=== PATIENT | female | born 1945 | race Caucasian/White ===

== ENCOUNTER → 2017-09-25 | Outpatient (CLI) | payer OTHER ==
[~2017-09-25] MED LIST: Biotin PO; CENTRUM SILVER1 EAC3 PO; CRESTOR10 MG PO; Coreg PO; DICYCLOMINE HCL10 MG PO; FUROSEMIDE20 MG PO; GABAPENTIN400 MG PO; KLOR-CON 1010 MEQ PO; LEVAQUIN500 MG PO; LEVOTHYROXINE50 MCG PO; METRONIDAZOLE500 MG PO; NIACIN500 M2 PO; PANTOPRAZOLE SO40 MG PO; VITAMIN E400 UNI1 PO; Vit D 3 PO
--- NOTE | 2017-09-25 08:49 | Diagnostic Imaging Report ---
PROCEDURE:ABDOMINAL ULTRASOUND COMPARISON:[facility], US, US ABDOMEN COMPLETE, 10/27/2014, 17:15. [facility], CT, CT ABDOMEN/PELVIS W, 09/16/2016, 18:10. INDICATION:Left Sided Abdominal Pain TECHNIQUE:Dias scale and color Doppler ultrasound FINDINGS: Imaged segments of the inferior vena cava and abdominal aorta are of normal caliber. Multifocal aortic atherosclerosis. Normal pancreatic head and proximal body. The tail is obscured by bowel gas. Right liver spans 14.5 cm. Diffusely coarsened and increased echotexture with a smooth margin. The portal vein diameter 1 cm; normal flow direction. Cholecystectomy. Common bile duct diameter 0.3 cm Right kidney: 10.4 x 5.4 x 5.5 cm. 0.8 x 0.6 x 0.7 cm non-shadowing hyperechoic focus at the inferior pole without conspicuous internal vascular flow. Left kidney: 10 x 4.4 x 4.4 cm. Spleen length is 9.7 cm. CONCLUSION: 1. Echogenic liver most commonly secondary to steatosis. 2. Stable 0.8 cm hyperechoic nodule at the right kidney consistent with an angiomyolipoma. 3. No conspicuous etiology for left abdominal pain. Dictated by: Von Pretty M.D. on 09/25/2017 at 8:48 Electronically approved by: Von Pretty M.D. on 09/25/2017 at 8:48
== END ==
LOC: US 07:11
PROVIDERS: ATTEND Family Medicine
DX: R10.9 Unspecified abdominal pain (principal)
CPT/HCPCS: 76700

== ENCOUNTER 2018-04-07 15:18 | Emergency (ER) | payer OTHER ==
[2018-04-07] MEDS ORDERED: COREG CR80 MG PO (23:38)
== END 2018-04-07 15:30 | disposition short-term general hospital (02) ==
LOC: FSED 15:18
DX: M25.473 Effusion, unspecified ankle (principal)

== ENCOUNTER 2018-04-07 15:39 | Inpatient (IN) | payer OTHER, MEDICARE ==
[~2018-04-07] VITALS: Ht 142.2 cm; Wt 83.5 kg
[2018-04-07 18:04] LABS: BASOPHILS # (AUTO) 0.1 (0.0-0.1); BASOPHILS % 0.5 % (0.0-1.0); EOSINOPHILS # (AUTO) 0.1 (0.0-0.4); EOSINOPHILS % 0.8 % (0.0-6.0); HEMATOCRIT 44.1 % (34.2-44.1); HEMOGLOBIN 14.8 g/dL (12.0-16.0); LYMPHOCYTES # (AUTO) 2.2 (1.0-3.2); LYMPHOCYTES % 16.3 % (18.0-39.1); MEAN CORPUSCULAR HEMOGLOBIN 31.8 pg (28-32); MEAN CORPUSCULAR HGB CONC 33.6 g/dL (31-35); MEAN CORPUSCULAR VOLUME 94.8 fL (81-99); MONOCYTES # (AUTO) 1.2 (0.2-0.8); MONOCYTES % 9.1 % (4.4-11.3); NEUTROPHILS # (AUTO) 9.7 (2.1-6.9); NEUTROPHILS % 72.8 % (38.7-80.0); PLATELET COUNT 413 x10e3/uL (140-360); RED BLOOD COUNT 4.65 x10e6/uL (3.6-5.1); RED CELL DISTRIBUTION WIDTH 13.6 % (11.7-14.4)
[2018-04-07 18:11] LABS: INR 1.01; PROTHROMBIN TIME 14.2 seconds (11.9-14.5)
[2018-04-07 18:12] LABS: PARTIAL THROMBOPLASTIN TIME 33.8 seconds (23.8-35.5)
[2018-04-07 18:22] LABS: ALANINE AMINOTRANSFERASE 58 IU/L (0-55); ALBUMIN 3.4 g/dL (3.5-5.0); ALBUMIN/GLOBULIN RATIO 0.7 (0.8-2.0); ALKALINE PHOSPHATASE 227 IU/L (40-150); ANION GAP 19.3 mmol/L (8-16); BLOOD UREA NITROGEN 11 mg/dL (7-26); BUN/CREATININE RATIO 14 (6-25); CALCIUM 10.3 mg/dL (8.4-10.2); CARBON DIOXIDE 27 mmol/L (22-29); CHLORIDE 98 mmol/L (98-107); CREATINE KINASE 37 IU/L (29-168); CREATININE, SERUM 0.78 mg/dL (0.57-1.11); EST GLOMERULAR FILTRATION RATE > 60 ML/MIN (60-); GLUCOSE 112 mg/dL (74-118); MAGNESIUM 2.2 MG/DL (1.3-2.1); POTASSIUM 4.3 mmol/L (3.5-5.1); SODIUM 140 mmol/L (136-145)
--- NOTE | 2018-04-07 18:58 | Diagnostic Imaging Report ---
EXAMINATION: CHEST SINGLE (PORTABLE) INDICATION: \S\ERMD ORDER \S\[id number] \S\[id number] \S\Y COMPARISON: CT chest 11/05/[address] abdomen pelvis 09/16/2016 FINDINGS: AP view TUBES and LINES: Pacemaker device overlying the left upper chest. Leads cannot be well evaluated on this exam. LUNGS: Lungs are well inflated. Bilateral pulmonary edema. No lobar consolidations. Bibasilar atelectasis. PLEURA: Likely small bilateral pleural effusions. No pneumothorax. HEART AND MEDIASTINUM: Moderate enlargement of the cardiac silhouette, unchanged. BONES AND SOFT TISSUES: No acute osseous lesion. Soft tissues are unremarkable. UPPER ABDOMEN: No free air under the diaphragm. IMPRESSION: Cardiomegaly and/or superimposed pericardial effusion with bilateral pulmonary edema. Signed by: Dr. Minoo Rivero M.D. on 04/07/2018 6:52 PM
--- NOTE | 2018-04-07 19:39 | Diagnostic Imaging Report ---
EXAM: CT CHEST W INDICATION: History of PEs, left lower chest may blood clot, swelling to the left lower extremity COMPARISON: CT of the chest November 05, 2014 TECHNIQUE: Multidetector CT scanning of the chest was performed. Coronal and sagittal multiplanar reformations were obtained. Dose modulation, iterative reconstruction, and/or weight based adjustment of the mA/kV was utilized to reduce the radiation dose to as low as reasonably achievable. PE protocol performed. IV Contrast: 100 cc Isovue-370 CTDIvol has been reviewed. It is below the limits set by the Radiation Protocol Committee (RPC). FINDINGS: LUNGS AND AIRWAYS: The trachea and major bronchi are unremarkable. No consolidations or edema. Moderate emphysematous changes predominantly involving the upper lungs. Bibasilar subsegmental scarring and mild traction bronchiectasis. PLEURA: No effusions or pneumothorax. HEART, MEDIASTINUM, VESSELS: The heart is at the upper limits of normal in size. Small pericardial effusion. Atherosclerotic changes of the thoracic aorta without focal aneurysm. No evidence of a pulmonary embolism to the segmental level. No mediastinal mass or lymphadenopathy. UPPER ABDOMEN: No acute findings MUSCULOSKELETAL: No acute findings. Left approach dual lead cardiac device. IMPRESSION: 1. No evidence of a pulmonary embolism. 2. Moderate emphysematous changes without focal consolidation. Signed by: Dr. Jessica Jones M.D. on 04/07/2018 7:33 PM
[2018-04-07] MEDS: ENOXAPARIN SODIUM INJ 100 MG/ML SYR SC SCH (21:00)
[2018-04-07] MEDS ORDERED: MORPHINE SULFATE 2 MG/ML SYR IV PRN (21:00)
[2018-04-07 23:12] VITALS: BP 111/49
[2018-04-07] MEDS ORDERED: SODIUM CHLORIDE 0.9% 50ML 50 ML ONE (23:12)
[2018-04-07] MEDS ORDERED: IOPAMIDOL 370 MG/ML 200 ML INFUS..BTL INJ ONE (23:12)
[2018-04-07 23:18] VITALS: BP 111/49
[2018-04-07] MEDS ORDERED: COREG CR80 MG PO (23:38)
[2018-04-08] VITALS (7 sets, daily range): BP systolic 96–140; BP diastolic 50–70
[2018-04-08 02:37] LABS: CREATINE KINASE 32 IU/L (29-168)
[2018-04-08] MEDS: ONDANSETRON HCL INJ 2 MG/ML VIAL IV PRN ×2 (03:08→08:55)
[2018-04-08 05:38] LABS: BASOPHILS # (AUTO) 0.1 (0.0-0.1); BASOPHILS % 0.6 % (0.0-1.0); EOSINOPHILS # (AUTO) 0.1 (0.0-0.4); HEMATOCRIT 40.6 % (34.2-44.1); HEMOGLOBIN 13.4 g/dL (12.0-16.0); LYMPHOCYTES % 17.1 % (18.0-39.1); MEAN CORPUSCULAR HEMOGLOBIN 31.6 pg (28-32); MEAN CORPUSCULAR VOLUME 95.8 fL (81-99); MONOCYTES # (AUTO) 1.2 (0.2-0.8); MONOCYTES % 10.1 % (4.4-11.3); NEUTROPHILS # (AUTO) 8.1 (2.1-6.9); NEUTROPHILS % 70.8 % (38.7-80.0); PLATELET COUNT 405 x10e3/uL (140-360); RED BLOOD COUNT 4.24 x10e6/uL (3.6-5.1); RED CELL DISTRIBUTION WIDTH 13.7 % (11.7-14.4)
[2018-04-08 08:36] LABS: CREATINE KINASE 31 IU/L (29-168)
[2018-04-08] MEDS: ENOXAPARIN SODIUM INJ 100 MG/ML SYR SC SCH (08:38)
[2018-04-08 14:12] LABS: CREATINE KINASE 33 IU/L (29-168)
--- NOTE | 2018-04-08 15:22 | Consultation ---
DATE OF CONSULTATION: April 08, 2018 CARDIOLOGY CONSULTATION REQUESTING PHYSICIAN: Dr. Naomy Willson REASON FOR CONSULTATION: Left lower extremity DVT. HISTORY OF PRESENT ILLNESS: This is a 72-year-old woman with a history of diabetes mellitus, hypertension, hyperlipidemia, history of DVT/PE previously on Coumadin therapy, St. Matthew permanent pacemaker, breast cancer status post right partial mastectomy, and rheumatoid arthritis, who presents with left lower extremity pain and swelling. The patient denies any recent travel or surgery. She noted swelling of her left lower extremity starting on Sunday. Her cardiac care is with Dr. Harmon. On speaking to his nurse about her left lower extremity swelling, she was instructed to present to the ER. Left lower extremity venous Doppler revealed extensive thrombus from the left common femoral vein, deep femoral vein, superficial femoral vein, popliteal vein and posterior tibial vein. The distal great saphenous vein remained patent. Cardiology was consulted for recommendations. The patient denies any chest pain, palpitations, orthopnea or PND. She does endorse chronic shortness of breath. REVIEW OF SYSTEMS: Negative, except as per HPI. PAST MEDICAL HISTORY 1. Diabetes mellitus. 2. Hypertension. 3. Hyperlipidemia. 4. History of PE/DVT previously on Coumadin therapy. 5. Status post St. Matthew permanent pacemaker. 6. Reported history of congestive heart failure. 7. Right breast cancer, status post partial mastectomy with chemotherapy and radiation. 8. Rheumatoid arthritis. 9. Hypothyroidism. PAST SURGICAL HISTORY 1. Partial mastectomy. 2. Cholecystectomy. 3. Exploratory laparotomy with colonic resection. 4. Tubal ligation. ALLERGIES: PLEASE SEE EMR. MEDICATIONS: Please see medication list. SOCIAL HISTORY: Denies tobacco, alcohol, or illicit drugs. FAMILY HISTORY: Noncontributory to current illness. PHYSICAL EXAMINATION VITAL SIGNS: Temperature 96.7 degrees, pulse 72, respiratory rate 20, blood pressure 113/55, oxygen saturation 94% on 3 L nasal cannula. GENERAL: Obese woman in no acute distress, well developed, well nourished. HEENT: Normocephalic and atraumatic. Pupils are equal. No scleral icterus. NECK: Supple. No thyromegaly or cervical lymphadenopathy. No carotid bruits. LUNGS: Clear to auscultation bilaterally. No wheezes or crackles. CARDIOVASCULAR: Normal rate, regular rhythm. No murmur. Normal S1, S2. ABDOMEN: Soft. Nontender. EXTREMITIES: Marked swelling of the left lower extremity. NEURO: Nonfocal exam. LABS: WBC 11.43, hemoglobin 13.4, hematocrit 40.6, platelets 405. Troponin less than 0.001. EKG: Sinus rhythm with occasional PVCs. Left axis deviation. Low-voltage QRS. CTA OF CHEST: No evidence of pulmonary embolism. Moderate emphysematous changes without focal consolidation. IMPRESSION 1. Left lower extremity deep venous thrombosis. 2. History of pulmonary embolism/deep venous thrombosis. 3. St. Matthew permanent pacemaker. 4. Reported history of congestive heart failure. 5. Diabetes mellitus. 6. Hypertension. 7. Hyperlipidemia. 8. Rheumatoid arthritis. 9. Hypothyroidism. 10. History of breast cancer, status post partial mastectomy with chemotherapy and radiation. RECOMMENDATIONS: Continue enoxaparin for anticoagulation. Given extent of thrombus, make patient after n.p.o. after midnight, and we will attempt to perform catheter thrombolysis of the left lower extremity. Continue home cardiac medications otherwise. We will obtain an echocardiogram. Thank you for this consult. We will continue to follow. Job#: [id number]
[2018-04-08] MEDS ORDERED: NON-FORMULARY MEDICATION (Potassium Chloride (Klor-Con 10) 10 MEQ) PO SCH (19:00)
[2018-04-08] MEDS: POTASSIUM CHLORIDE 10 MEQ TABCR PO SCH (20:12)
[2018-04-08] MEDS: SIMVASTATIN 20 MG TAB PO SCH (20:12)
[2018-04-08] MEDS: ENOXAPARIN INJ 80 MG/0.8 ML SYR SC SCH (20:12)
[2018-04-08] MEDS: GABAPENTIN 400 MG CAP PO SCH (20:12)
[2018-04-09] VITALS (27 sets, daily range): BP systolic 73–139; BP diastolic 33–118
[2018-04-09] MEDS: LEVOTHYROXINE SODIUM 50 MCG TAB PO SCH (05:50)
[2018-04-09] MEDS: ENOXAPARIN INJ 80 MG/0.8 ML SYR SC SCH ×2 (08:30→20:17)
[2018-04-09] MEDS ORDERED: NON-FORMULARY MEDICATION (Carvedilol Phosphate (Coreg Cr) 80 MG) PO SCH (09:00)
[2018-04-09] MEDS: CARVEDILOL 40 MG CAPCR PO SCH (09:00)
[2018-04-09] MEDS ORDERED: SIMVASTATIN 40 MG TAB PO SCH (09:00)
[2018-04-09] MEDS ORDERED: LEVOTHYROXINE SODIUM 50 MCG TAB PO SCH (09:00)
[2018-04-09] MEDS: NIACIN 500 MG TABSR PO SCH (09:45)
[2018-04-09] MEDS: FUROSEMIDE 20 MG TAB PO SCH (09:45)
[2018-04-09] MEDS ORDERED: SODIUM CHLORIDE 0.9% 1000ML 1,000 ML ONE (11:57)
[2018-04-09] MEDS ORDERED: IOPAMIDOL 300MG/ML 100 ML INFUS..BTL IV ONE (11:57)
[2018-04-09] MEDS ORDERED: LIDOCAINE HCL 2% LOCAL 20 ML VIAL ONE (11:57)
[2018-04-09] MEDS ORDERED: HEPARIN SOD/SOD CHLORIDE 2,000 ML ONE (11:57)
[2018-04-09] MEDS ORDERED: FENTANYL CITRATE/PF 100MCG/2 ML INJ ONE (13:04)
[2018-04-09] MEDS ORDERED: HEPARIN SOD (PORCINE) 1000 UNIT/ML 30ML ONE (13:04)
[2018-04-09] MEDS ORDERED: MIDAZOLAM HCL 2 MG/2 ML VIAL ONE (13:04)
[2018-04-09] MEDS ORDERED: NITROGLYCERIN/D5W 200 MCG/ML 0 ML ONE (13:04)
[2018-04-09] MEDS ORDERED: ALTEPLASE 50 MG/VIAL (29 MILLION IU) IV ONE (13:53)
[2018-04-09] MEDS ORDERED: ALTEPLASE RECOMBINANT 2 MG/2 ML VIAL ONE (13:53)
[2018-04-09] MEDS ORDERED: SODIUM CHLORIDE 0.9% 500ML 500 ML ONE (13:54)
[2018-04-09] MEDS ORDERED: HEPARIN 25,000U/0.45% NS 250ML 250 ML ONE (14:38)
[2018-04-09] MEDS ORDERED: HEPARIN SOD (PORCINE) 5,000 UNIT/ML VIAL ONE (14:45)
[2018-04-09] MEDS ORDERED: HEPARIN SOD (PORCINE) 1000 UNIT/ML SDV IV ONE (15:00)
[2018-04-09] MEDS: HEPARIN 25,000 UNIT/D5W 250ML 250 ML IV SCH ×2 (15:03→21:58)
[2018-04-09] MEDS: MORPHINE SULFATE INJ 4 MG/ML INJ IV PRN ×2 (15:52→21:44)
[2018-04-09] MEDS: ONDANSETRON HCL INJ 2 MG/ML VIAL IV PRN ×2 (17:04→21:35)
--- NOTE | 2018-04-09 18:32 | Progress Note ---
DATE: April 09, 2018 CARDIOLOGY PROGRESS NOTE SUBJECTIVE: Had catheter placement in her lower extremity veins today with infusion of tPA ongoing. Doing well post procedure, no complaints. OBJECTIVE VITAL SIGNS: Temperature 98.9, pulse 72, respiratory rate 16, blood pressure 121/64, satting 95% on 2 liters nasal cannula. GENERAL: Awake, alert, oriented, obese white female. CARDIOVASCULAR: Regular rate and rhythm. No murmurs, rubs or gallops. Palpable carotid pulses. Palpable radial pulses. Left lower extremity is extremely swollen with 3+ edema and tenderness. Catheter in place. No significant bleeding. RESPIRATORY: Anterior exam clear to auscultation. ABDOMEN: Obese, soft, nontender, nondistended. No masses. NEURO AND PSYCH: Alert and oriented to person, place and time. Normal affect. INPATIENT MEDICATIONS: Reviewed. LABORATORY DATA: Reviewed. IMAGING DATA: Reviewed. TELEMETRY DATA: Reviewed. Normal sinus rhythm. ASSESSMENT 1. Left lower extremity deep venous thrombosis. 2. History of pulmonary embolism and deep venous thrombosis. 3. St. Matthew permanent pacemaker. 4. Reported history of congestive heart failure. 5. Diabetes. 6. Hypertension. 7. Hyperlipidemia. 8. Rheumatoid arthritis. 9. Hypothyroidism. 10. History of breast cancer status post partial mastectomy and chemotherapy and radiation. RECOMMENDATIONS: Continue intravenous tPA and heparin. Plan is to perform further thrombectomy tomorrow to see if we can get the deep veins patent to avoid long-term complications from this extensive deep venous thrombosis. Keep patient n.p.o. after midnight. Continue cardiac medications otherwise. Thank you for this consult. Will continue to follow. Job#: [id number] EV
[2018-04-09] MEDS: GABAPENTIN 400 MG CAP PO SCH (21:31)
[2018-04-09] MEDS: SIMVASTATIN 20 MG TAB PO SCH (21:31)
[2018-04-10] VITALS (38 sets, daily range): BP systolic 99–145; BP diastolic 49–101
[2018-04-10] MEDS ORDERED: PROMETHAZINE 25MG/ NS 50ML (IV) IV PRN (00:15)
[2018-04-10] MEDS: HEPARIN 25,000 UNIT/D5W 250ML 250 ML IV SCH (03:05)
[2018-04-10] MEDS: MORPHINE SULFATE INJ 4 MG/ML INJ IV PRN (03:43)
[2018-04-10 04:46] LABS: BASOPHILS # (AUTO) 0.1 (0.0-0.1); BASOPHILS % 0.6 % (0.0-1.0); EOSINOPHILS # (AUTO) 0.1 (0.0-0.4); EOSINOPHILS % 0.9 % (0.0-6.0); HEMATOCRIT 41.7 % (34.2-44.1); HEMOGLOBIN 13.3 g/dL (12.0-16.0); LYMPHOCYTES # (AUTO) 1.3 (1.0-3.2); LYMPHOCYTES % 12.6 % (18.0-39.1); MEAN CORPUSCULAR HEMOGLOBIN 31.1 pg (28-32); MEAN CORPUSCULAR HGB CONC 31.9 g/dL (31-35); MEAN CORPUSCULAR VOLUME 97.7 fL (81-99); MONOCYTES # (AUTO) 1.1 (0.2-0.8); MONOCYTES % 11.1 % (4.4-11.3); NEUTROPHILS # (AUTO) 7.6 (2.1-6.9); NEUTROPHILS % 74.4 % (38.7-80.0); PLATELET COUNT 384 x10e3/uL (140-360); RED BLOOD COUNT 4.27 x10e6/uL (3.6-5.1); RED CELL DISTRIBUTION WIDTH 13.2 % (11.7-14.4)
[2018-04-10 05:04] LABS: ANION GAP 16.4 mmol/L (8-16); BLOOD UREA NITROGEN 16 mg/dL (7-26); BUN/CREATININE RATIO 23 (6-25); CALCIUM 9.6 mg/dL (8.4-10.2); CARBON DIOXIDE 28 mmol/L (22-29); CHLORIDE 101 mmol/L (98-107); CREATININE, SERUM 0.69 mg/dL (0.57-1.11); EST GLOMERULAR FILTRATION RATE > 60 ML/MIN (60-); GLUCOSE 126 mg/dL (74-118); POTASSIUM 4.4 mmol/L (3.5-5.1); SODIUM 141 mmol/L (136-145)
[2018-04-10] MEDS: LEVOTHYROXINE SODIUM 50 MCG TAB PO SCH (05:41)
[2018-04-10] MEDS: ENOXAPARIN INJ 80 MG/0.8 ML SYR SC SCH (08:42)
[2018-04-10] MEDS: ONDANSETRON HCL INJ 2 MG/ML VIAL IV PRN (08:43)
[2018-04-10] MEDS: CARVEDILOL 40 MG CAPCR PO SCH (09:00)
[2018-04-10] MEDS: NIACIN 500 MG TABSR PO SCH (09:00)
[2018-04-10] MEDS: FUROSEMIDE 20 MG TAB PO SCH (09:00)
--- NOTE | 2018-04-10 10:15 | Progress Note ---
DATE: April 10, 2018 CARDIOLOGY PROGRESS NOTE SUBJECTIVE: The patient denies chest pain. She states her breathing is so-so. The patient underwent catheter placement in her left lower extremity yesterday for catheter thrombolysis. Plan to return to the [facility] later today for re-evaluation. OBJECTIVE VITALS: Temperature 97.9 degrees, pulse 79, respiratory rate 13, blood pressure 142/69, oxygen saturation 92% on 5 L nasal cannula. GENERAL: Obese woman in no acute distress. Awake and alert. LUNGS: Clear to auscultation anteriorly. No wheezes or crackles. CARDIOVASCULAR: Normal rate. Regular rhythm. No murmur. Normal S1 and S2. ABDOMEN: Soft and nontender. EXTREMITIES: Significant swelling of the left lower extremity with catheter in place. No significant bleeding is present. CARDIAC MEDICATIONS 1. Heparin drip. 2. Simvastatin 20 mg p.o. at bedtime. 3. Furosemide 20 mg p.o. daily. 4. Carvedilol 80 mg p.o. daily. LABS: WBC 10.24, hemoglobin 13.3, hematocrit 41.7, and platelets 384,000. Sodium 141, potassium 4.4, chloride 101, CO2 28, BUN 16, creatinine 0.69. Telemetry is normal sinus rhythm. IMPRESSION 1. Left lower extremity deep venous thrombosis. 2. History of pulmonary embolism and deep venous thrombosis. 3. St. Matthew permanent pacemaker. 4. History of congestive heart failure. 5. Moderate to severe aortic regurgitation. 6. Diabetes mellitus. 7. Hypertension. 8. Hyperlipidemia. 9. Rheumatoid arthritis. 10. Hypothyroidism. 11. History of breast cancer, status post partial mastectomy with chemotherapy and radiation. RECOMMENDATIONS: Continue intravenous tPA and heparin. The patient will return to the [facility] later today for re-evaluation and possible thrombectomy. Discontinue enoxaparin until heparin has been stopped. She will need initiation on oral anticoagulation post procedure. Continue current cardiac medications otherwise. Thank you for this consult. We will continue to follow. Job#: [id number] ANTONY
[2018-04-10] MEDS ORDERED: IOPAMIDOL 300MG/ML 100 ML INFUS..BTL IV ONE (12:44)
[2018-04-10] MEDS ORDERED: HEPARIN SOD/SOD CHLORIDE 1,000 ML ONE (12:44)
[2018-04-10] MEDS ORDERED: SODIUM CHLORIDE 0.9% 1000ML 1,000 ML ONE (12:44)
[2018-04-10] MEDS ORDERED: MIDAZOLAM HCL 2 MG/2 ML VIAL ONE (13:01)
[2018-04-10] MEDS ORDERED: FENTANYL CITRATE/PF 100MCG/2 ML INJ ONE (13:02)
[2018-04-10] MEDS ORDERED: LIDOCAINE HCL 2% LOCAL 20 ML VIAL ONE (13:12)
[2018-04-10] MEDS ORDERED: RIVAROXABAN 15 MG TABLET PO STA (15:02)
[2018-04-10] MEDS: RIVAROXABAN 15 MG TABLET PO SCH ×2 (15:52→17:54)
[2018-04-10 18:50] LABS: CLARITY,URINE CLOUDY (CLEAR); COLOR,URINE YELLOW (YELLOW); LEUKOCYTE ESTERASE ,URINE NEGATIVE (NEGATIVE); NITRITE,URINE POSITIVE (NEGATIVE); PROTEIN,URINE DIPSTICK 2+ (NEGATIVE); URINE UROBILINOGEN 0.2 mg/dL (0.2 - 1)
[2018-04-10 18:51] LABS: BILIRUBIN,URINE NEGATIVE (NEGATIVE); KETONES,URINE TRACE (NEGATIVE)
[2018-04-10 18:55] LABS: BACTERIA,URINE MANY /HPF; RBC,URINE 21-50 /HPF (0-5); WBC,URINE (MAN) 21-50 /HPF (0-5)
[2018-04-10] MEDS: POTASSIUM CHLORIDE 10 MEQ TABCR PO SCH (19:33)
--- NOTE | 2018-04-10 20:21 | Operative Report ---
DATE OF PROCEDURE: April 10, 2018 INDICATIONS: DVT. PROCEDURES PERFORMED: 1. Unilateral extremity venogram with first-order catheter placement in the left femoral vein. 2. Primary thrombectomy of the left common femoral vein. 3. Removal of lysis catheter. COMPLICATIONS: None. RECOMMENDATIONS: Staged left iliac vein intravascular ultrasound and stent placement in 6 to 8 weeks. Existing sheath was used to perform venogram of the left femoral vein. There was partial reperfusion. In the left iliofemoral DVT, large amounts of thrombus burden remained. A primary thrombectomy was performed with church of reasonable outflow into the inferior vena cava. The sheath was secured and removed under manual pressure. Patient was initially on anticoagulation and discharged home. Job#: [id number] EV
--- NOTE | 2018-04-10 20:27 | Operative Report ---
DATE OF PROCEDURE: INDICATIONS: Acute left iliofemoral DVT. PROCEDURES PERFORMED: 1. Ultrasound-guided access into the small saphenous vein on the left side. 1. Primary thrombectomy of the left common femoral and iliac veins. 2. Initiation of transcatheter lysis. COMPLICATIONS: None. RECOMMENDATIONS: Transcatheter lysis for the next 24 hours with reassessment of reperfusion. BLOOD LOSS: 10 mL. Access obtained in the left small saphenous vein using ultrasound guidance. A 6-Cambodian sheath was placed. Complete occlusion of the femoral, common femoral and iliac veins was noted. The lesions were crossed using a Glidewire, and a 20 cm perfusion catheter was deployed and secured in place. Patient was initiated on intravenous heparin and tPA and transferred to the ICU in stable condition. Job#: [id number] KAREN
[2018-04-10] MEDS: SIMVASTATIN 20 MG TAB PO SCH (21:52)
[2018-04-10] MEDS: GABAPENTIN 400 MG CAP PO SCH (21:52)
[2018-04-11] MEDS: ONDANSETRON HCL INJ 2 MG/ML VIAL IV PRN (00:50)
[2018-04-11] MEDS: MORPHINE SULFATE INJ 4 MG/ML INJ IV PRN (00:50)
[2018-04-11 04:32] VITALS: BP 137/63
[2018-04-11] MEDS: LEVOTHYROXINE SODIUM 50 MCG TAB PO SCH (06:32)
[2018-04-11 07:15] VITALS: BP 134/66
[2018-04-11] MEDS: RIVAROXABAN 15 MG TABLET PO SCH ×2 (08:58→16:03)
[2018-04-11] MEDS: FUROSEMIDE 20 MG TAB PO SCH (08:59)
[2018-04-11] MEDS: CARVEDILOL 40 MG CAPCR PO SCH (08:59)
[2018-04-11] MEDS: NIACIN 500 MG TABSR PO SCH (08:59)
--- NOTE | 2018-04-11 10:28 | Progress Note ---
DATE: April 11, 2018 CARDIOLOGY PROGRESS NOTE SUBJECTIVE: The patient denies chest pain or shortness of breath. Her legs feel slightly better. OBJECTIVE VITALS: Temperature 96.6 degrees, pulse 70, respiratory rate 20, blood pressure 134/66, oxygen saturation 93% on 4 L nasal cannula. GENERAL: Obese woman in no acute distress. Awake and alert. LUNGS: Clear to auscultation bilaterally. No wheezes or crackles. CARDIOVASCULAR: Normal rate. Regular rhythm. No murmur. Normal S1 and S2. ABDOMEN: Soft and nontender. EXTREMITIES: Left lower extremity remains swollen. CARDIAC MEDICATIONS 1. Carvedilol 80 mg p.o. daily. 2. Furosemide 20 mg p.o. daily. 3. Rivaroxaban 15 mg p.o. b.i.d. 4. Levothyroxine 100 mcg p.o. daily. 5. Simvastatin 20 mg p.o. at bedtime. LABS: None today. IMPRESSION 1. Left lower extremity deep venous thrombosis. 2. History of pulmonary embolism/deep venous thrombosis. 3. St. Matthew permanent pacemaker. 4. History of congestive heart failure. 5. Moderate to severe aortic regurgitation. 6. Diabetes mellitus. 7. Hypertension. 8. Hyperlipidemia. 9. Rheumatoid arthritis. 10. Hypothyroidism. 11. History of breast cancer, status post partial mastectomy with chemotherapy and radiation. RECOMMENDATIONS: Patient underwent left lower extremity venogram with catheter placement into the left femoral vein and primary thrombectomy of the left common femoral vein as well as removal of the lysis catheter. The patient will need staged left iliac vein intravascular ultrasound and stent placement in 6 to 8 weeks. Start Xarelto 15 mg p.o. b.i.d. and compression of the left lower extremity. Continue current cardiac medications otherwise. Thank you for this consult. We will continue to follow. Job#: [id number]
[2018-04-11 11:39] VITALS: BP 117/56
[2018-04-11] MEDS: HEPARIN 25,000 UNIT/D5W 250ML 250 ML IV SCH (14:00)
[2018-04-11 16:00] VITALS: BP 129/60
== END 2018-04-11 16:11 | disposition home or self-care (01) | DRG 271 ==
LOC: ER 15:39 → INTOOBSV 20:58 → ERHOLD 20:58 → MED/SURG 22:08 → ICU 04-09 14:53 → OBSVTOIN 04-10 12:56 → MED/SURG 04-10 20:49
PROC: 3E03317 Introduction of Other Thrombolytic into Peripheral Vein, Percutaneous Approach (ICD-10-PCS; 2018-04-09)
PROC: B51C1ZZ Fluoroscopy of Left Lower Extremity Veins using Low Osmolar Contrast (ICD-10-PCS; 2018-04-09)
PROC: 04CL3ZZ Extirpation of Matter from Left Femoral Artery, Percutaneous Approach (ICD-10-PCS; principal; 2018-04-10)
PROC: 04CD3ZZ Extirpation of Matter from Left Common Iliac Artery, Percutaneous Approach (ICD-10-PCS; 2018-04-10)
DX: I82.422 Acute embolism and thrombosis of left iliac vein (principal); Z68.41 Body mass index [BMI] 40.0-44.9, adult; I82.432 Acute embolism and thrombosis of left popliteal vein; I82.442 Acute embolism and thrombosis of left tibial vein; E66.01 Morbid (severe) obesity due to excess calories; E11.9 Type 2 diabetes mellitus without complications; I11.0 Hypertensive heart disease with heart failure; I50.9 Heart failure, unspecified; I25.10 Atherosclerotic heart disease of native coronary artery without angina pectoris; E03.9 Hypothyroidism, unspecified; M06.9 Rheumatoid arthritis, unspecified; I35.1 Nonrheumatic aortic (valve) insufficiency; G47.00 Insomnia, unspecified; Z86.711 Personal history of pulmonary embolism; Z86.718 Personal history of other venous thrombosis and embolism; Z79.01 Long term (current) use of anticoagulants; Z95.0 Presence of cardiac pacemaker; Z85.3 Personal history of malignant neoplasm of breast; Z92.21 Personal history of antineoplastic chemotherapy; Z92.3 Personal history of irradiation; Z88.5 Allergy status to narcotic agent; Z88.2 Allergy status to sulfonamides; Z88.8 Allergy status to other drugs, medicaments and biological substances
CPT/HCPCS: 36010; 36415; 37187; 37212; 71045; 71260; 75820; 75825; 80048; 80053; 81001; 82550; 82553; 82948; 83605; 83735; 83880; 84484; 85025; 85610; 85730; 87040; 87071; 87186; 87205; 93005; 93306; 93970; 99284; C1769; G0378; J1644; J1650; J2001; J2250; J2270; J2405; J2997; J7030; J7040; Q9967

== ENCOUNTER → 2018-04-25 | Day surgery (SDC) | payer OTHER ==
[~2018-04-25] VITALS: Ht 144.8 cm; Wt 82.6 kg
[2018-04-25] VITALS (9 sets, daily range): BP systolic 117–133; BP diastolic 56–72
[~2018-04-25] MED LIST changes: +BENZOCAINE 20% SPR 60 ML CAN ONE; +COREG CR80 MG PO; +LIDOCAINE HCL 2% LOCAL INJ 5 ML SDV VIAL INJ ONE; +LOSARTAN POTASS25 MG PO; +PROPOFOL IV EMULSION 10 MG/ML 20 ML VIAL ONE; +SODIUM CHLORIDE 0.9% 1000ML 1,000 ML ONE; +XARELTO10 MG PO
[2018-04-25 09:18] LABS: BASOPHILS # (AUTO) 0.1 (0.0-0.1); BASOPHILS % 0.8 % (0.0-1.0); EOSINOPHILS # (AUTO) 0.3 (0.0-0.4); HEMATOCRIT 43.1 % (34.2-44.1); HEMOGLOBIN 13.9 g/dL (12.0-16.0); LYMPHOCYTES % 26.4 % (18.0-39.1); MEAN CORPUSCULAR HEMOGLOBIN 31.4 pg (28-32); MEAN CORPUSCULAR HGB CONC 32.3 g/dL (31-35); MEAN CORPUSCULAR VOLUME 97.5 fL (81-99); MONOCYTES # (AUTO) 0.7 (0.2-0.8); MONOCYTES % 8.9 % (4.4-11.3); NEUTROPHILS # (AUTO) 4.5 (2.1-6.9); NEUTROPHILS % 59.5 % (38.7-80.0); PLATELET COUNT 336 x10e3/uL (140-360); RED BLOOD COUNT 4.42 x10e6/uL (3.6-5.1); RED CELL DISTRIBUTION WIDTH 14.4 % (11.7-14.4)
[2018-04-25 09:31] LABS: INR 1.41; PROTHROMBIN TIME 18.4 seconds (11.9-14.5)
[2018-04-25 09:34] LABS: ALANINE AMINOTRANSFERASE 16 IU/L (0-55); ALBUMIN 3.3 g/dL (3.5-5.0); ALBUMIN/GLOBULIN RATIO 0.8 (0.8-2.0); ALKALINE PHOSPHATASE 97 IU/L (40-150); ANION GAP 14.1 mmol/L (8-16); BLOOD UREA NITROGEN 14 mg/dL (7-26); BUN/CREATININE RATIO 18 (6-25); CALCIUM 9.9 mg/dL (8.4-10.2); CARBON DIOXIDE 30 mmol/L (22-29); CHLORIDE 101 mmol/L (98-107); CREATININE, SERUM 0.79 mg/dL (0.57-1.11); EST GLOMERULAR FILTRATION RATE > 60 ML/MIN (60-); GLUCOSE 113 mg/dL (74-118); POTASSIUM 4.1 mmol/L (3.5-5.1); SODIUM 141 mmol/L (136-145)
== END | disposition home or self-care (01) ==
LOC: CATH LAB 08:21
PROVIDERS: ATTEND Internal Medicine
DX: I35.0 Nonrheumatic aortic (valve) stenosis (principal); I82.402 Acute embolism and thrombosis of unspecified deep veins of left lower extremity; I70.0 Atherosclerosis of aorta; J44.9 Chronic obstructive pulmonary disease, unspecified; I10 Essential (primary) hypertension; E78.5 Hyperlipidemia, unspecified; G47.33 Obstructive sleep apnea (adult) (pediatric); E03.9 Hypothyroidism, unspecified; Z88.6 Allergy status to analgesic agent; Z91.041 Radiographic dye allergy status; Z88.2 Allergy status to sulfonamides; Z88.8 Allergy status to other drugs, medicaments and biological substances; Z91.018 Allergy to other foods; Z79.02 Long term (current) use of antithrombotics/antiplatelets; Z95.0 Presence of cardiac pacemaker; Z87.891 Personal history of nicotine dependence; Z68.38 Body mass index [BMI] 38.0-38.9, adult
CPT/HCPCS: 36415; 80053; 85025; 85610; 93312; 93320; 93325; J2001; J7030

== ENCOUNTER → 2018-08-08 | Day surgery (SDC) | payer OTHER ==
[2018-08-07 11:16] LABS: BASOPHILS % 0.3 % (0.0-1.0); EOSINOPHILS # (AUTO) 0.2 (0.0-0.4); EOSINOPHILS % 2.6 % (0.0-6.0); HEMATOCRIT 44.4 % (34.2-44.1); HEMOGLOBIN 14.5 g/dL (12.0-16.0); LYMPHOCYTES # (AUTO) 2.1 (1.0-3.2); LYMPHOCYTES % 31.3 % (18.0-39.1); MEAN CORPUSCULAR HEMOGLOBIN 31.3 pg (28-32); MEAN CORPUSCULAR HGB CONC 32.7 g/dL (31-35); MEAN CORPUSCULAR VOLUME 95.7 fL (81-99); MONOCYTES # (AUTO) 0.8 (0.2-0.8); MONOCYTES % 11.1 % (4.4-11.3); NEUTROPHILS # (AUTO) 3.7 (2.1-6.9); NEUTROPHILS % 54.4 % (38.7-80.0); PLATELET COUNT 234 x10e3/uL (140-360); RED BLOOD COUNT 4.64 x10e6/uL (3.6-5.1); RED CELL DISTRIBUTION WIDTH 13.7 % (11.7-14.4)
[2018-08-07 11:39] LABS: INR 0.86; PROTHROMBIN TIME 12.5 seconds (11.9-14.5)
[2018-08-07 11:44] LABS: ALANINE AMINOTRANSFERASE 12 IU/L (0-55); ALBUMIN 3.6 g/dL (3.5-5.0); ALBUMIN/GLOBULIN RATIO 1.3 (0.8-2.0); ALKALINE PHOSPHATASE 74 IU/L (40-150); BLOOD UREA NITROGEN 14 mg/dL (7-26); BUN/CREATININE RATIO 18 (6-25); CARBON DIOXIDE 28 mmol/L (22-29); CHLORIDE 101 mmol/L (98-107); CREATININE, SERUM 0.79 mg/dL (0.57-1.11); EST GLOMERULAR FILTRATION RATE > 60 ML/MIN (60-); GLUCOSE 95 mg/dL (74-118); SODIUM 138 mmol/L (136-145)
[2018-08-08] VITALS (10 sets, daily range): BP systolic 105–144; BP diastolic 66–88
[~2018-08-08] VITALS: Ht 142.2 cm; Wt 90.7 kg
[~2018-08-08] MED LIST changes: -BENZOCAINE 20% SPR 60 ML CAN ONE; +DIPHENHYDRAMINE HCL 25 MG CAP ONE; +DIPHENHYDRAMINE HCL INJ 50 MG/ML VIAL ONE; +FAMOTIDINE 20 MG/2 ML VIAL IV ONE; +FENTANYL CITRATE/PF 100MCG/2 ML INJ ONE; +FUROSEMIDE INJ 10 MG/ML 4 ML VIAL ONE; +HEPARIN SOD (PORCINE) 1000 UNIT/ML 30ML ONE; +HEPARIN SOD/SOD CHLORIDE 2,000 ML ONE; +IOPAMIDOL 370 MG/ML 200 ML INFUS..BTL INJ ONE; +LIDOCAINE HCL 1% LOCAL INJ 20 ML VIAL ONE; -LIDOCAINE HCL 2% LOCAL INJ 5 ML SDV VIAL INJ ONE; +METHYLPREDNISOLONE SOD SUCC 125 MG/2ML VIAL ONE; +MIDAZOLAM HCL 2 MG/2 ML VIAL ONE; +NITROGLYCERIN/D5W 200 MCG/ML 250 ML ONE; -PROPOFOL IV EMULSION 10 MG/ML 20 ML VIAL ONE; +VERAPAMIL HCL 2.5 MG/ML 2 ML VIAL ONE
--- NOTE | 2018-08-08 10:15 | NUR ---
1015am received pt in Rec room #9 Identifierx2. Received report from Reed ESCALONA.[facility] Dr Oliveira. Rt TR Band approach Rt Tr band site w/o oozing or hematoma 13cc in bladder TR band Titration scheduled at 1045. Back to baseline orientation Resp regular sats 88% w/o O2 3Ln/c.Pt on home O2.Abdomen soft and nontender denies necessity to defecate or urinate. Josafat Discussed Dc instructions and f/o care. Has copies of POC. Pt eating ,tolerating food and assisted to bathroom . Bilateral PPx4 present. Iv 0.9NS at 50cc HR to left iv site w/o s/s infiltration
--- NOTE | 2018-08-08 10:45 | NUR ---
TR Band titration started 13cc in balloon Rt Radial pulse adequate no s/s bleeding,device intact.
--- NOTE | 2018-08-08 12:00 | NUR ---
1200 stable vs and TR band site 100% titration successful Stable site. coban and tegaderm and 2x2 gauze and splint in place. Dc paper given to family and dressed and assisted to car per [facility] staff Jesus [employer] REPAIR[employer] Iv removed site w/o infiltration. coban dressing in place. 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 To car per w/c aware of importance to followup care at [facility] will call for appt. No co has no concerns or questions
--- NOTE | 2018-08-08 15:20 | Operative Report ---
DATE OF PROCEDURE: August 08, 2018 PROCEDURES TITLE 1. Left heart catheterization. 2. Selective coronary angiography times 2. INDICATIONS: Abnormal nuclear stress test. CONSENT: Informed consent was obtained and documented in the chart. PROCEDURE IN DETAIL: The patient was brought to the cardiac catheterization laboratory in a fasting state after written informed consent was obtained. Bilateral groins and right wrist were prepped and draped in the usual sterile fashion. Next, 1% lidocaine was infiltrated over the right radial artery to achieve local anesthesia. The right radial artery was accessed with a micropuncture needle. A 5-Scottish sheath was placed via modified Seldinger technique. A 5-Scottish TIG was inserted and advanced into the ascending aorta under fluoroscopic guidance. The left main coronary artery was cannulated under fluoroscopic guidance. Selective coronary angiography was performed. The TIG was then advanced into the left ventricle. Hemodynamic measurements were obtained. The TIG was withdrawn into the ascending aorta. An attempt was made to cannulate the right coronary artery. This was unsuccessful. The TIG was thus exchanged for a 5-Scottish 3DRC over an exchange length Wooly wire. The right coronary artery was cannulated under fluoroscopic guidance. Selective coronary angiography was performed. The 3DRC was removed followed by the 5-Scottish sheath. TR band was used to achieve hemostasis. The patient tolerated the procedure well with no immediate complications. FINDINGS: The left main trifurcates into the left anterior descending, ramus intermedius, and circumflex arteries. The LAD is a moderate caliber vessel, which wraps around the apex. There was an area of 20% to 30% stenosis prior to the takeoff of the 1st diagonal. The ramus intermedius was a medium caliber vessel without angiographic evidence of significant coronary artery disease. The circumflex was a medium caliber vessel, which gave rise to a large branching OM-1. There was 20% to 30% stenosis of the proximal circumflex. The RCA was a large caliber vessel, which gave rise to the PDA. There were luminal irregularities noted. LV 146/-2 mmHg. LVEDP 24 mmHg. AO 150/68 mmHg. CONCLUSION: Nonobstructive coronary artery disease. RECOMMENDATIONS: Continue medical management and lifestyle modification. Gentle diuresis. Job#: [id number] ANTONY [facility]TEFI[facility] HEALTH SYSTEMJessi
== END | disposition home or self-care (01) ==
LOC: CATH LAB 06:25
PROVIDERS: ATTEND Internal Medicine
DX: I25.10 Atherosclerotic heart disease of native coronary artery without angina pectoris (principal); I35.1 Nonrheumatic aortic (valve) insufficiency; R94.39 Abnormal result of other cardiovascular function study; I10 Essential (primary) hypertension; E78.5 Hyperlipidemia, unspecified; J44.9 Chronic obstructive pulmonary disease, unspecified; Z01.812 Encounter for preprocedural laboratory examination; Z79.02 Long term (current) use of antithrombotics/antiplatelets; Z68.41 Body mass index [BMI] 40.0-44.9, adult; Z95.0 Presence of cardiac pacemaker; Z86.718 Personal history of other venous thrombosis and embolism; Z82.49 Family history of ischemic heart disease and other diseases of the circulatory system
CPT/HCPCS: 36415; 80053; 85025; 85610; 93458; C1769; C1887; J1200; J1644; J1940; J2001; J2250; J2930; J7030; Q9967

== ENCOUNTER 2019-05-10 19:58 | Emergency (ER) | payer OTHER ==
[~2019-05-10] VITALS: Ht 142.2 cm; Wt 90.7 kg
[~2019-05-10 19:58] MED LIST changes: -DIPHENHYDRAMINE HCL 25 MG CAP ONE; -DIPHENHYDRAMINE HCL INJ 50 MG/ML VIAL ONE; -FAMOTIDINE 20 MG/2 ML VIAL IV ONE; -FENTANYL CITRATE/PF 100MCG/2 ML INJ ONE; -FUROSEMIDE INJ 10 MG/ML 4 ML VIAL ONE; -HEPARIN SOD (PORCINE) 1000 UNIT/ML 30ML ONE; -HEPARIN SOD/SOD CHLORIDE 2,000 ML ONE; -IOPAMIDOL 370 MG/ML 200 ML INFUS..BTL INJ ONE; -LIDOCAINE HCL 1% LOCAL INJ 20 ML VIAL ONE; -METHYLPREDNISOLONE SOD SUCC 125 MG/2ML VIAL ONE; -MIDAZOLAM HCL 2 MG/2 ML VIAL ONE; -NITROGLYCERIN/D5W 200 MCG/ML 250 ML ONE; -SODIUM CHLORIDE 0.9% 1000ML 1,000 ML ONE; -VERAPAMIL HCL 2.5 MG/ML 2 ML VIAL ONE
--- NOTE | 2019-05-10 21:23 | Diagnostic Imaging Report ---
History:Fall, denies hitting the head Comparison studies:None Technique: Axial images were obtained from the skull base to the vertex. Coronal and sagittal images reconstructed from the axial data. Intravenous contrast: None Dose modulation, iterative reconstruction, and/or weight based adjustment of the mA/kV was utilized to reduce the radiation dose to as low as reasonably achievable. Findings: Scalp/skull: No abnormalities. Extra-axial spaces: No masses. No fluid collections. Brain sulci: Mildly prominent. Ventricles: Mild compensatory dilatation. No hydrocephalus. Parenchyma: Scattered small hypodensities in the supratentorial white matter are small vessel ischemic changes. No masses, hemorrhage, acute or chronic cortical vascular insults. Sellar/suprasellar region: No abnormalities. Craniocervical junction: Patent foramen magnum. No Chiari one malformation. Incidental findings: Atherosclerotic calcifications in the carotid siphons and vertebral arteries . Impression: No acute abnormalities. Chronic findings: 1. Mild generalized volume loss. 2. Mild supratentorial white matter small vessel ischemic changes. Signed by: DR Gael Wagner M.D. on 05/10/2019 9:20 PM
--- NOTE | 2019-05-10 23:09 | Diagnostic Imaging Report ---
X-ray pelvis one view HISTORY: Pain. COMPARISON: None available. FINDINGS: Bones: No acute displaced fracture. Osseous alignment is within normal limits. Spine fixation hardware at L5-S1. Joints: The joint spaces are well-maintained. Degenerative changes in the spine hips and pelvis. Soft tissues: The soft tissues appear unremarkable. IMPRESSION: No acute radiographic osseous abnormality. Degenerative changes in the spine hips and pelvis. Signed by: Jose Andre DO on 05/10/2019 11:06 PM
--- NOTE | 2019-05-10 23:10 | Diagnostic Imaging Report ---
X-ray left femur 2 views HISTORY: Pain. COMPARISON: None available. FINDINGS: Bones: No acute displaced fracture. Osseous alignment is within normal limits. Joints: The joint spaces are well-maintained. Mild degenerative changes in the hip. Soft tissues: The soft tissues appear unremarkable. IMPRESSION: No acute radiographic abnormality. Mild degenerative changes in the hip. Signed by: Jose Andre DO on 05/10/2019 11:07 PM
--- NOTE | 2019-05-10 23:13 | Diagnostic Imaging Report ---
X-ray left tib-fib 2 views HISTORY: Pain. COMPARISON: None available. FINDINGS: Bones: No acute displaced fracture. Osseous alignment is within normal limits. Joints: The joint spaces are well-maintained. Soft tissues: Edema throughout the subcutaneous soft tissues of the lower calf. IMPRESSION: No acute radiographic osseous abnormality. Edema throughout the subcutaneous soft tissues of the lower calf. Signed by: Jose Andre DO on 05/10/2019 11:09 PM
--- NOTE | 2019-05-10 23:16 | Diagnostic Imaging Report ---
EXAMINATION: CHEST SINGLE (PORTABLE) INDICATION: Fall COMPARISON: Chest CT 03/17/1990 10/02/2017, chest radiograph 04/07/2018 FINDINGS: AP view TUBES and LINES: Left chest wall cardiac device with leads in the right atrium and right ventricle.. LUNGS: Lungs are well inflated. Reticular opacities in the upper lungs are consistent with emphysematous changes. There is no evidence of pneumonia or pulmonary edema. Pulmonary vascular congestion. Haziness in the left lung base is likely due to chronic scarring/atelectasis, similar to that seen on 04/07/2018. PLEURA: No pleural effusion or pneumothorax. HEART AND MEDIASTINUM: The cardiomediastinal silhouette is unremarkable. BONES AND SOFT TISSUES: No acute osseous lesion. Soft tissues are unremarkable. UPPER ABDOMEN: No free air under the diaphragm. IMPRESSION: No acute thoracic radiographic abnormality. Pulmonary vascular congestion. Pulmonary emphysema Haziness in the left lung base is likely due to chronic scarring/atelectasis, similar to that seen on 04/07/2018. Signed by: Jose Andre DO on 05/10/2019 11:12 PM
[2019-05-10] MEDS ORDERED: ULTRAM50 MG PO (23:40)
[2019-05-10] MEDS ORDERED: HYDROCODONE/APAP 7.5MG-325MG 1 EA TAB PO PRN (23:45)
[2019-05-11] MEDS ORDERED: HYDROCODONE/APAP 7.5MG-325MG 1 EA TAB ONE (00:05)
--- NOTE | 2019-05-11 01:00 | NUR ---
PT PLACED IN KNEE IMMOBILIZER.
== END 2019-05-11 01:10 | disposition home or self-care (01) ==
LOC: ER 19:58
DX: S00.03XA Contusion of scalp, initial encounter (principal); S80.02XA Contusion of left knee, initial encounter; S80.12XA Contusion of left lower leg, initial encounter; W01.0XXA Fall on same level from slipping, tripping and stumbling without subsequent striking against object, initial encounter; Y92.008 Other place in unspecified non-institutional (private) residence as the place of occurrence of the external cause
CPT/HCPCS: 99284

== ENCOUNTER 2020-11-09 20:32 | Emergency (ER) | payer OTHER ==
[~2020-11-09] VITALS: Ht 142.2 cm; Wt 90.7 kg
[~2020-11-09 20:32] MED LIST changes: +ULTRAM50 MG PO
[2020-11-09 21:38] LABS: BASOPHILS % 0.3 % (0.0-1.0); EOSINOPHILS # (AUTO) 0.1 (0.0-0.4); EOSINOPHILS % 1.3 % (0.0-6.0); HEMATOCRIT 46.7 % (34.2-44.1); HEMOGLOBIN 15.5 g/dL (12.0-16.0); LYMPHOCYTES # (AUTO) 1.4 (1.0-3.2); LYMPHOCYTES % 16.5 % (18.0-39.1); MEAN CORPUSCULAR HEMOGLOBIN 32.6 pg (28-32); MEAN CORPUSCULAR HGB CONC 33.2 g/dL (31-35); MEAN CORPUSCULAR VOLUME 98.3 fL (81-99); MONOCYTES # (AUTO) 0.9 (0.2-0.8); MONOCYTES % 10.5 % (4.4-11.3); NEUTROPHILS # (AUTO) 6.1 (2.1-6.9); NEUTROPHILS % 71.1 % (38.7-80.0); PLATELET COUNT 238 x10e3/uL (140-360); RED BLOOD COUNT 4.75 x10e6/uL (3.6-5.1); RED CELL DISTRIBUTION WIDTH 14.7 % (11.7-14.4)
[2020-11-09 21:58] LABS: INR 1.31
[2020-11-09 21:59] LABS: ALANINE AMINOTRANSFERASE 10 IU/L (0-55); ALBUMIN 3.4 g/dL (3.5-5.0); ALBUMIN/GLOBULIN RATIO 1.1 (0.8-2.0); ALKALINE PHOSPHATASE 70 IU/L (40-150); ANION GAP 13.5 mmol/L (8-16); BLOOD UREA NITROGEN 13 mg/dL (7-26); BUN/CREATININE RATIO 15 (6-25); CALCIUM 8.9 mg/dL (8.4-10.2); CARBON DIOXIDE 31 mmol/L (22-29); CHLORIDE 103 mmol/L (98-107); CREATINE KINASE 76 IU/L (29-168); CREATININE, SERUM 0.84 mg/dL (0.57-1.11); EST GLOMERULAR FILTRATION RATE > 60 ML/MIN (60-); GLUCOSE 104 mg/dL (74-118); POTASSIUM 4.5 mmol/L (3.5-5.1); SODIUM 143 mmol/L (136-145)
[2020-11-10] MEDS ORDERED: FUROSEMIDE INJ 10 MG/ML 4 ML VIAL ONE (00:27)
[2020-11-10] MEDS ORDERED: FUROSEMIDE INJ 10 MG/ML 4 ML VIAL IV ONE (00:30)
== END 2020-11-10 01:26 | disposition home or self-care (01) ==
LOC: ER 21:19
DX: I50.9 Heart failure, unspecified (principal); J81.1 Chronic pulmonary edema; R94.31 Abnormal electrocardiogram [ECG] [EKG]; Z20.822 Contact with and (suspected) exposure to COVID-19
CPT/HCPCS: 36415; 71045; 80053; 82550; 82553; 83880; 84484; 85025; 85610; 85730; 93005; 99283; J1940; U0002

== ENCOUNTER 2022-05-04 11:54 | Inpatient (IN) | payer MEDICARE, OTHER ==
[~2022-05-04] VITALS: Ht 154.9 cm; Wt 76.2 kg
[2022-05-04] MEDS ORDERED: ONDANSETRON HCL INJ 2MG/ML 2ML 2 MG/ML VIAL IV STA (12:24)
[2022-05-04] MEDS ORDERED: SODIUM CHLORIDE FLUSH 10 ML SYR IV PRN (12:30)
[2022-05-04 12:43] LABS: BASOPHILS # (AUTO) 0.1 (0.0-0.1); BASOPHILS % 0.7 % (0.0-1.0); EOSINOPHILS % 0.1 % (0.0-6.0); HEMATOCRIT 44.5 % (34.2-44.1); HEMOGLOBIN 14.8 g/dL (12.0-16.0); LYMPHOCYTES # (AUTO) 1.3 (1.0-3.2); LYMPHOCYTES % 16.1 % (18.0-39.1); MEAN CORPUSCULAR HEMOGLOBIN 31.8 pg (28-32); MEAN CORPUSCULAR HGB CONC 33.3 g/dL (31-35); MEAN CORPUSCULAR VOLUME 95.5 fL (81-99); MONOCYTES # (AUTO) 1.3 (0.2-0.8); MONOCYTES % 15.2 % (4.4-11.3); NEUTROPHILS # (AUTO) 5.5 (2.1-6.9); NEUTROPHILS % 66.9 % (38.7-80.0); PLATELET COUNT 278 x10e3/uL (140-360); RED BLOOD COUNT 4.66 x10e6/uL (3.6-5.1); RED CELL DISTRIBUTION WIDTH 14.3 % (11.7-14.4)
[2022-05-04 13:00] LABS: ALBUMIN/GLOBULIN RATIO 0.6 (0.8-2.0); ANION GAP 22.3 mmol/L (8-16); CREATININE, SERUM 0.86 mg/dL (0.57-1.11); POTASSIUM 4.3 mmol/L (3.5-5.1)
[2022-05-04] MEDS ORDERED: FUROSEMIDE INJ 10 MG/ML 4 ML VIAL IV ONE (13:30)
[2022-05-04] MEDS ORDERED: HEPARIN SOD (PORCINE) 5,000 UNIT/ML VIAL IV ONE (14:15)
[2022-05-04] MEDS ORDERED: CLINDAMYCIN PHOS 900MG/ 50ML 50 ML IV ONE (14:15)
[2022-05-04 14:23] LABS: INR 1.23; PROTHROMBIN TIME 16.6 seconds (11.9-14.5)
[2022-05-04 14:24] LABS: PARTIAL THROMBOPLASTIN TIME 37.4 seconds (23.8-35.5)
[2022-05-04] MEDS ORDERED: HEPARIN 25,000 UNIT DRIP IV ONE (14:29)
[2022-05-04] MEDS ORDERED: HEPARIN 25,000 UNIT 1,100 UNIT in DEXTROSE 5% 250ML 250 ML IV SCH (14:30)
[2022-05-04] MEDS ORDERED: HYDROCORTISONE SOD SUCCINATE 100 MG VIAL IV ONE ×2 (15:00→19:00)
[2022-05-04] MEDS ORDERED: SODIUM CHLORIDE FLUSH 10 ML SYR INJ PRN (17:45)
[2022-05-04] MEDS ORDERED: ASPIRIN 81 MG CHEW TAB PO ONE (17:45)
[2022-05-04] MEDS ORDERED: DIPHENHYDRAMINE HCL INJ 50 MG/ML VIAL IV ONE (19:00)
[2022-05-04] MEDS ORDERED: IOPAMIDOL 370 MG/ML 100 ML INFUS..BTL INJ ONE (20:42)
[2022-05-04] MEDS: TOBRAMYCIN 0.3% (OPTH) 5 ML BTL OP SCH (20:49)
[2022-05-04] MEDS: FUROSEMIDE INJ 10 MG/ML 4 ML VIAL IV SCH (21:00)
[2022-05-05] VITALS (25 sets, daily range): BP systolic 71–114; BP diastolic 31–68
[2022-05-05] MEDS ORDERED: GENTAMICIN SULFATE 0.3% OP 5 ML BTL OP SCH
[2022-05-05] MEDS: TOBRAMYCIN 0.3% (OPTH) 5 ML BTL OP SCH ×4 (00:59→17:42)
[2022-05-05 04:57] LABS: BASOPHILS # (AUTO) 0.1 (0.0-0.1); BASOPHILS % 1.1 % (0.0-1.0); HEMATOCRIT 44.1 % (34.2-44.1); HEMOGLOBIN 13.8 g/dL (12.0-16.0); LYMPHOCYTES # (AUTO) 0.8 (1.0-3.2); LYMPHOCYTES % 14.9 % (18.0-39.1); MEAN CORPUSCULAR HEMOGLOBIN 31.1 pg (28-32); MEAN CORPUSCULAR HGB CONC 31.3 g/dL (31-35); MEAN CORPUSCULAR VOLUME 99.3 fL (81-99); MONOCYTES # (AUTO) 0.5 (0.2-0.8); MONOCYTES % 9.7 % (4.4-11.3); NEUTROPHILS % 71.4 % (38.7-80.0); PLATELET COUNT 280 x10e3/uL (140-360); RED BLOOD COUNT 4.44 x10e6/uL (3.6-5.1); RED CELL DISTRIBUTION WIDTH 14.6 % (11.7-14.4)
[2022-05-05 05:19] LABS: ANION GAP 18.1 mmol/L (8-16); CALCIUM 9.2 mg/dL (8.4-10.2); CREATININE, SERUM 0.96 mg/dL (0.57-1.11); POTASSIUM 4.1 mmol/L (3.5-5.1)
[2022-05-05 06:41] LABS: CREATINE KINASE MB 1.6 ng/mL (0-5.0)
[2022-05-05] MEDS ORDERED: Vancomycin IV 1 GM in SODIUM CHLORIDE 0.9% 250ML 250 ML IV ONE (08:00)
[2022-05-05] MEDS: FUROSEMIDE INJ 10 MG/ML 4 ML VIAL IV SCH ×2 (09:32→21:00)
[2022-05-05] MEDS: DOCUSATE SODIUM 100 MG CAP PO SCH (10:38)
[2022-05-05] MEDS: SENNOSIDES 8.6 MG TAB PO SCH (10:38)
[2022-05-05] MEDS: RIVAROXABAN 20 MG TABLET PO SCH (10:38)
[2022-05-05] MEDS ORDERED: ENOXAPARIN SOD INJ 40 MG/0.4 ML SYR SC SCH (17:00)
[2022-05-05 18:55] LABS: CREATINE KINASE MB 1.7 ng/mL (0-5.0)
[2022-05-05 19:07] LABS: CALCIUM 9.1 mg/dL (8.4-10.2); CREATININE, SERUM 0.93 mg/dL (0.57-1.11)
[2022-05-06] VITALS (16 sets, daily range): BP systolic 93–128; BP diastolic 41–60
[2022-05-06] MEDS: TOBRAMYCIN 0.3% (OPTH) 5 ML BTL OP SCH ×4 (00:36→18:00)
[2022-05-06 06:09] LABS: BASOPHILS % 0.1 % (0.0-1.0); EOSINOPHILS # (AUTO) 0.1 (0.0-0.4); EOSINOPHILS % 0.7 % (0.0-6.0); HEMATOCRIT 44.9 % (34.2-44.1); HEMOGLOBIN 13.9 g/dL (12.0-16.0); LYMPHOCYTES # (AUTO) 1.7 (1.0-3.2); LYMPHOCYTES % 17.3 % (18.0-39.1); MEAN CORPUSCULAR HEMOGLOBIN 31.2 pg (28-32); MEAN CORPUSCULAR VOLUME 100.7 fL (81-99); MONOCYTES % 10.2 % (4.4-11.3); NEUTROPHILS # (AUTO) 5.2 (2.1-6.9); NEUTROPHILS % 53.9 % (38.7-80.0); PLATELET COUNT 377 x10e3/uL (140-360); RED BLOOD COUNT 4.46 x10e6/uL (3.6-5.1); RED CELL DISTRIBUTION WIDTH 14.6 % (11.7-14.4)
[2022-05-06 06:27] LABS: ALBUMIN 2.6 g/dL (3.5-5.0); ALBUMIN/GLOBULIN RATIO 0.6 (0.8-2.0); ANION GAP 14.5 mmol/L (8-16); CALCIUM 9.3 mg/dL (8.4-10.2); CREATININE, SERUM 0.78 mg/dL (0.57-1.11); MAGNESIUM 2.4 MG/DL (1.3-2.1); POTASSIUM 3.5 mmol/L (3.5-5.1)
[2022-05-06 06:34] LABS: CREATINE KINASE MB 1.2 ng/mL (0-5.0)
[2022-05-06] MEDS: Vancomycin IV 1 GM in SODIUM CHLORIDE 0.9% 250ML 250 ML IV SCH ×2 (09:00→09:25)
[2022-05-06] MEDS: DOCUSATE SODIUM 100 MG CAP PO SCH (09:24)
[2022-05-06] MEDS: SENNOSIDES 8.6 MG TAB PO SCH (09:24)
[2022-05-06] MEDS: RIVAROXABAN 20 MG TABLET PO SCH (09:24)
[2022-05-06] MEDS ORDERED: AZITHROMYCIN 250 MG TAB PO ONE (10:00)
[2022-05-06] MEDS ORDERED: POTASSIUM CHLORIDE 20 MEQ TAB CR PO ONE (11:30)
[2022-05-06] MEDS ORDERED: HYDROCHLOROTHIAZIDE 25 MG TAB PO SCH (11:30)
[2022-05-06] MEDS: DEXTROSE 5% IV SCH ×3 (13:01→23:35)
[2022-05-06] MEDS: TAZOBACTAM IV SCH ×3 (13:01→23:35)
[2022-05-06] MEDS: PIPERACILLIN IV SCH ×3 (13:01→23:35)
[2022-05-06] MEDS: FUROSEMIDE INJ 10 MG/ML 4 ML VIAL IV SCH (13:10)
[2022-05-06] MEDS ORDERED: OMEPRAZOLE40 MG PO (14:27)
[2022-05-06 19:00] LABS: CLARITY,URINE CLEAR (CLEAR); COLOR,URINE YELLOW (YELLOW); KETONES,URINE NEGATIVE (NEGATIVE); LEUKOCYTE ESTERASE ,URINE NEGATIVE (NEGATIVE); NITRITE,URINE NEGATIVE (NEGATIVE); PROTEIN,URINE DIPSTICK NEGATIVE (NEGATIVE); URINE UROBILINOGEN 0.2 mg/dL (0.2 - 1)
[2022-05-06 19:38] LABS: RBC,URINE 0-5 /HPF (0-5); WBC,URINE (MAN) 0-5 /HPF (0-5)
[2022-05-06 19:39] LABS: BACTERIA,URINE MODERATE /HPF; EPITHELIAL CELLS,URINE MODERATE /LPF
[2022-05-06] MEDS ORDERED: PIPERACILLIN/TAZOBACTAM 3.375 GM VIAL ONE (23:43)
[2022-05-07] VITALS (15 sets, daily range): BP systolic 91–128; BP diastolic 44–83
[2022-05-07] MEDS: DEXTROSE 5% IV SCH ×3 (05:30→17:48)
[2022-05-07] MEDS: TAZOBACTAM IV SCH ×3 (05:30→17:48)
[2022-05-07] MEDS: PIPERACILLIN IV SCH ×3 (05:30→17:48)
[2022-05-07] MEDS: LEVOTHYROXINE SODIUM 100 MCG TAB PO SCH (05:31)
[2022-05-07 06:00] LABS: BASOPHILS % 0.2 % (0.0-1.0); EOSINOPHILS # (AUTO) 0.1 (0.0-0.4); EOSINOPHILS % 1.6 % (0.0-6.0); HEMOGLOBIN 13.5 g/dL (12.0-16.0); LYMPHOCYTES # (AUTO) 1.7 (1.0-3.2); LYMPHOCYTES % 19.4 % (18.0-39.1); MEAN CORPUSCULAR HEMOGLOBIN 31.8 pg (28-32); MEAN CORPUSCULAR HGB CONC 32.1 g/dL (31-35); MEAN CORPUSCULAR VOLUME 98.8 fL (81-99); MONOCYTES # (AUTO) 0.9 (0.2-0.8); NEUTROPHILS # (AUTO) 4.4 (2.1-6.9); NEUTROPHILS % 51.5 % (38.7-80.0); PLATELET COUNT 326 x10e3/uL (140-360); RED BLOOD COUNT 4.25 x10e6/uL (3.6-5.1); RED CELL DISTRIBUTION WIDTH 14.3 % (11.7-14.4)
[2022-05-07] MEDS: TOBRAMYCIN 0.3% (OPTH) 5 ML BTL OP SCH ×4 (06:00→17:49)
[2022-05-07 06:23] LABS: ALBUMIN 2.4 g/dL (3.5-5.0); ALBUMIN/GLOBULIN RATIO 0.5 (0.8-2.0); ANION GAP 14.5 mmol/L (8-16); CALCIUM 9.1 mg/dL (8.4-10.2); CREATININE, SERUM 0.66 mg/dL (0.57-1.11); POTASSIUM 3.5 mmol/L (3.5-5.1)
[2022-05-07 07:29] LABS: EOSINOPHILS % (MANUAL) 2 % (0-7); LYMPHOCYTES % (MANUAL) 17 % (19-48); MONOCYTES % (MANUAL) 17 % (3.4-9.0); NEUTROPHILS % (MANUAL) 56 % (40-74); PLATELET ESTIMATE ADEQUATE; PLATELET MORPHOLOGY COMMENT NORMAL; RBC MORPHOLOGY COMMENT NORMAL
[2022-05-07] MEDS: RIVAROXABAN 20 MG TABLET PO SCH (08:20)
[2022-05-07] MEDS: DOCUSATE SODIUM 100 MG CAP PO SCH (08:20)
[2022-05-07] MEDS: SIMVASTATIN 40 MG TAB PO SCH (08:21)
[2022-05-07] MEDS: SENNOSIDES 8.6 MG TAB PO SCH (08:21)
[2022-05-07] MEDS ORDERED: AZITHROMYCIN 250 MG TAB PO SCH (09:00)
[2022-05-07] MEDS ORDERED: POTASSIUM CHLORIDE 20 MEQ TAB CR PO STA (12:16)
[2022-05-07] MEDS ORDERED: FUROSEMIDE INJ 10 MG/ML 4 ML VIAL IV ONE (12:30)
[2022-05-07] MEDS: FUROSEMIDE INJ 10 MG/ML 4 ML VIAL IV SCH (12:49)
[2022-05-07] MEDS: AZITHROMYCIN ORAL SUSP 200 MG/5 ML PO SCH (12:52)
[2022-05-07] MEDS: Vancomycin IV 1 GM in SODIUM CHLORIDE 0.9% 250ML 250 ML IV SCH (12:53)
[2022-05-07] MEDS: ONDANSETRON HCL INJ 2MG/ML 2ML 2 MG/ML VIAL IV PRN (13:42)
[2022-05-07] MEDS: ACETAZOLAMIDE 250 MG TAB PO SCH (17:48)
[2022-05-08] VITALS (10 sets, daily range): BP systolic 103–128; BP diastolic 49–65
[2022-05-08] MEDS: TAZOBACTAM IV SCH ×5 (00:16→23:23)
[2022-05-08] MEDS: DEXTROSE 5% IV SCH ×5 (00:16→23:23)
[2022-05-08] MEDS: TOBRAMYCIN 0.3% (OPTH) 5 ML BTL OP SCH ×5 (00:16→23:23)
[2022-05-08] MEDS: PIPERACILLIN IV SCH ×5 (00:16→23:23)
[2022-05-08 05:07] LABS: BASOPHILS % 0.2 % (0.0-1.0); EOSINOPHILS # (AUTO) 0.1 (0.0-0.4); EOSINOPHILS % 1.3 % (0.0-6.0); HEMATOCRIT 47.1 % (34.2-44.1); LYMPHOCYTES # (AUTO) 1.7 (1.0-3.2); LYMPHOCYTES % 18.5 % (18.0-39.1); MEAN CORPUSCULAR HEMOGLOBIN 31.5 pg (28-32); MEAN CORPUSCULAR HGB CONC 29.7 g/dL (31-35); MONOCYTES # (AUTO) 0.9 (0.2-0.8); MONOCYTES % 9.5 % (4.4-11.3); NEUTROPHILS # (AUTO) 5.4 (2.1-6.9); PLATELET COUNT 337 x10e3/uL (140-360); RED BLOOD COUNT 4.45 x10e6/uL (3.6-5.1); RED CELL DISTRIBUTION WIDTH 13.8 % (11.7-14.4)
[2022-05-08 05:15] LABS: MEAN CORPUSCULAR VOLUME 105.8 fL (81-99)
[2022-05-08] MEDS: LEVOTHYROXINE SODIUM 100 MCG TAB PO SCH (05:32)
[2022-05-08 05:52] LABS: ALBUMIN 2.5 g/dL (3.5-5.0); ALBUMIN/GLOBULIN RATIO 0.6 (0.8-2.0); ANION GAP 17.7 mmol/L (8-16); CREATININE, SERUM 0.71 mg/dL (0.57-1.11); MAGNESIUM 2.2 MG/DL (1.3-2.1); POTASSIUM 3.7 mmol/L (3.5-5.1)
[2022-05-08] MEDS: FUROSEMIDE INJ 10 MG/ML 4 ML VIAL IV SCH (08:43)
[2022-05-08] MEDS: SENNOSIDES 8.6 MG TAB PO SCH (08:44)
[2022-05-08] MEDS: DOCUSATE SODIUM 100 MG CAP PO SCH (08:44)
[2022-05-08] MEDS: Vancomycin IV 1 GM in SODIUM CHLORIDE 0.9% 250ML 250 ML IV SCH (08:44)
[2022-05-08] MEDS: SIMVASTATIN 40 MG TAB PO SCH (08:45)
[2022-05-08] MEDS: POTASSIUM CHLORIDE 20 MEQ TAB CR PO SCH (08:46)
[2022-05-08] MEDS: ACETAZOLAMIDE 250 MG TAB PO SCH ×2 (08:46→17:07)
[2022-05-08] MEDS: RIVAROXABAN 20 MG TABLET PO SCH (08:47)
[2022-05-08] MEDS: AZITHROMYCIN ORAL SUSP 200 MG/5 ML PO SCH (08:48)
[2022-05-08] MEDS ORDERED: HYDROCHLOROTHIAZIDE 25 MG TAB PO ONE (10:45)
[2022-05-09] VITALS (16 sets, daily range): BP systolic 91–127; BP diastolic 47–80
[2022-05-09 05:54] LABS: BASOPHILS # (AUTO) 0.1 (0.0-0.1); BASOPHILS % 1.3 % (0.0-1.0); EOSINOPHILS # (AUTO) 0.2 (0.0-0.4); EOSINOPHILS % 2.4 % (0.0-6.0); HEMOGLOBIN 13.4 g/dL (12.0-16.0); LYMPHOCYTES # (AUTO) 1.7 (1.0-3.2); MEAN CORPUSCULAR HEMOGLOBIN 31.2 pg (28-32); MEAN CORPUSCULAR HGB CONC 30.5 g/dL (31-35); MEAN CORPUSCULAR VOLUME 102.3 fL (81-99); MONOCYTES # (AUTO) 0.8 (0.2-0.8); MONOCYTES % 8.2 % (4.4-11.3); NEUTROPHILS # (AUTO) 5.6 (2.1-6.9); NEUTROPHILS % 59.8 % (38.7-80.0); PLATELET COUNT 267 x10e3/uL (140-360); RED CELL DISTRIBUTION WIDTH 13.3 % (11.7-14.4)
[2022-05-09 06:14] LABS: ANION GAP 16.2 mmol/L (8-16); CALCIUM 9.4 mg/dL (8.4-10.2); CREATININE, SERUM 0.67 mg/dL (0.57-1.11); POTASSIUM 3.2 mmol/L (3.5-5.1)
[2022-05-09] MEDS: DEXTROSE 5% IV SCH ×3 (06:40→17:01)
[2022-05-09] MEDS: TAZOBACTAM IV SCH ×3 (06:40→17:01)
[2022-05-09] MEDS: LEVOTHYROXINE SODIUM 100 MCG TAB PO SCH (06:40)
[2022-05-09] MEDS: TOBRAMYCIN 0.3% (OPTH) 5 ML BTL OP SCH ×3 (06:40→17:01)
[2022-05-09] MEDS: PIPERACILLIN IV SCH ×3 (06:40→17:01)
[2022-05-09] MEDS: FUROSEMIDE INJ 10 MG/ML 4 ML VIAL IV SCH (08:26)
[2022-05-09] MEDS: Vancomycin IV 1 GM in SODIUM CHLORIDE 0.9% 250ML 250 ML IV SCH (08:26)
[2022-05-09] MEDS: DOCUSATE SODIUM 100 MG CAP PO SCH (08:26)
[2022-05-09] MEDS: ACETAZOLAMIDE 250 MG TAB PO SCH ×2 (08:27→17:01)
[2022-05-09] MEDS: SENNOSIDES 8.6 MG TAB PO SCH (08:27)
[2022-05-09] MEDS: HYDROCHLOROTHIAZIDE 25 MG TAB PO SCH (08:27)
[2022-05-09] MEDS: POTASSIUM CHLORIDE 20 MEQ TAB CR PO SCH (08:28)
[2022-05-09] MEDS: RIVAROXABAN 20 MG TABLET PO SCH (08:28)
[2022-05-09] MEDS: SIMVASTATIN 40 MG TAB PO SCH (08:29)
[2022-05-09] MEDS: AZITHROMYCIN ORAL SUSP 200 MG/5 ML PO SCH (08:29)
[2022-05-09] MEDS ORDERED: POTASSIUM CHLORIDE 20 MEQ TAB CR PO ONE (12:00)
[2022-05-10] VITALS (22 sets, daily range): BP systolic 110–143; BP diastolic 56–78
[2022-05-10] MEDS: TOBRAMYCIN 0.3% (OPTH) 5 ML BTL OP SCH ×5 (00:21→23:44)
[2022-05-10] MEDS: DEXTROSE 5% IV SCH ×5 (00:22→23:44)
[2022-05-10] MEDS: PIPERACILLIN IV SCH ×5 (00:22→23:44)
[2022-05-10] MEDS: TAZOBACTAM IV SCH ×5 (00:22→23:44)
[2022-05-10] MEDS: LEVOTHYROXINE SODIUM 100 MCG TAB PO SCH (06:14)
[2022-05-10] MEDS: DOCUSATE SODIUM 100 MG CAP PO SCH (08:50)
[2022-05-10] MEDS: RIVAROXABAN 20 MG TABLET PO SCH (08:50)
[2022-05-10] MEDS: SIMVASTATIN 40 MG TAB PO SCH (08:50)
[2022-05-10] MEDS: ACETAZOLAMIDE 250 MG TAB PO SCH ×2 (08:51→18:25)
[2022-05-10] MEDS: HYDROCHLOROTHIAZIDE 25 MG TAB PO SCH (08:52)
[2022-05-10] MEDS: SENNOSIDES 8.6 MG TAB PO SCH (08:52)
[2022-05-10] MEDS: POTASSIUM CHLORIDE 20 MEQ TAB CR PO SCH (08:52)
[2022-05-10] MEDS: FUROSEMIDE INJ 10 MG/ML 4 ML VIAL IV SCH ×2 (08:53→14:59)
[2022-05-10] MEDS: Vancomycin IV 1 GM in SODIUM CHLORIDE 0.9% 250ML 250 ML IV SCH (08:53)
[2022-05-10] MEDS: AZITHROMYCIN ORAL SUSP 200 MG/5 ML PO SCH (09:19)
[2022-05-10] MEDS: SALIVA SUBSTITUTE 45 ML LIQD MM SCH ×2 (11:30→16:30)
[2022-05-10] MEDS ORDERED: DEXTROSE 5% 50ML 50 ML IV ONE (23:43)
[2022-05-11] VITALS (21 sets, daily range): BP systolic 100–129; BP diastolic 48–65
[2022-05-11] MEDS: TAZOBACTAM IV SCH ×4 (05:51→23:35)
[2022-05-11] MEDS: PIPERACILLIN IV SCH ×4 (05:51→23:35)
[2022-05-11] MEDS: DEXTROSE 5% IV SCH ×4 (05:51→23:35)
[2022-05-11] MEDS: TOBRAMYCIN 0.3% (OPTH) 5 ML BTL OP SCH ×3 (05:54→17:17)
[2022-05-11 06:01] LABS: HEMATOCRIT 47.1 % (34.2-44.1); HEMOGLOBIN 15.1 g/dL (12.0-16.0); MEAN CORPUSCULAR HEMOGLOBIN 31.5 pg (28-32); MEAN CORPUSCULAR HGB CONC 32.1 g/dL (31-35); MEAN CORPUSCULAR VOLUME 98.1 fL (81-99); PLATELET COUNT 282 x10e3/uL (140-360); RED CELL DISTRIBUTION WIDTH 13.2 % (11.7-14.4)
[2022-05-11] MEDS: LEVOTHYROXINE SODIUM 100 MCG TAB PO SCH (06:15)
[2022-05-11 06:18] LABS: ANION GAP 16.6 mmol/L (8-16); CALCIUM 9.6 mg/dL (8.4-10.2); CREATININE, SERUM 0.8 mg/dL (0.57-1.11)
[2022-05-11 06:37] LABS: POTASSIUM 2.6 mmol/L (3.5-5.1)
[2022-05-11] MEDS: SALIVA SUBSTITUTE 45 ML LIQD MM SCH ×3 (07:30→17:16)
[2022-05-11] MEDS ORDERED: POTASSIUM CHL 40 MEQ in SODIUM CHLORIDE 0.9% 250ML 230 ML IV ONE (08:00)
[2022-05-11] MEDS: DOCUSATE SODIUM 100 MG CAP PO SCH (08:40)
[2022-05-11] MEDS: FUROSEMIDE INJ 10 MG/ML 4 ML VIAL IV SCH (08:40)
[2022-05-11] MEDS: Vancomycin IV 1 GM in SODIUM CHLORIDE 0.9% 250ML 250 ML IV SCH (08:40)
[2022-05-11] MEDS: HYDROCHLOROTHIAZIDE 25 MG TAB PO SCH (08:40)
[2022-05-11] MEDS: ACETAZOLAMIDE 250 MG TAB PO SCH ×2 (08:40→17:16)
[2022-05-11] MEDS: RIVAROXABAN 20 MG TABLET PO SCH (08:41)
[2022-05-11] MEDS: SENNOSIDES 8.6 MG TAB PO SCH (08:41)
[2022-05-11] MEDS: POTASSIUM CHLORIDE 20 MEQ TAB CR PO SCH (08:41)
[2022-05-11] MEDS: AZITHROMYCIN ORAL SUSP 200 MG/5 ML PO SCH (08:41)
[2022-05-11] MEDS: SIMVASTATIN 40 MG TAB PO SCH (08:43)
[2022-05-11] MEDS ORDERED: PREDNISONE 20 MG TAB PO SCH (11:50)
[2022-05-11] MEDS ORDERED: POTASSIUM CHLORIDE 20MEQ/100ML 200 ML IV ONE (16:45)
[2022-05-12] VITALS (11 sets, daily range): BP systolic 99–124; BP diastolic 50–81
[2022-05-12] MEDS: TAZOBACTAM IV SCH ×3 (05:36→17:04)
[2022-05-12] MEDS: PIPERACILLIN IV SCH ×3 (05:36→17:04)
[2022-05-12] MEDS: DEXTROSE 5% IV SCH ×3 (05:36→17:04)
[2022-05-12] MEDS: LEVOTHYROXINE SODIUM 100 MCG TAB PO SCH (05:41)
[2022-05-12 06:03] LABS: BASOPHILS # (AUTO) 0.1 (0.0-0.1); BASOPHILS % 0.6 % (0.0-1.0); EOSINOPHILS # (AUTO) 0.3 (0.0-0.4); EOSINOPHILS % 2.6 % (0.0-6.0); HEMATOCRIT 47.1 % (34.2-44.1); HEMOGLOBIN 14.9 g/dL (12.0-16.0); LYMPHOCYTES % 20.1 % (18.0-39.1); MEAN CORPUSCULAR HEMOGLOBIN 31.1 pg (28-32); MEAN CORPUSCULAR HGB CONC 31.6 g/dL (31-35); MEAN CORPUSCULAR VOLUME 98.3 fL (81-99); MONOCYTES # (AUTO) 0.8 (0.2-0.8); MONOCYTES % 8.3 % (4.4-11.3); NEUTROPHILS # (AUTO) 6.5 (2.1-6.9); NEUTROPHILS % 65.9 % (38.7-80.0); PLATELET COUNT 269 x10e3/uL (140-360); RED BLOOD COUNT 4.79 x10e6/uL (3.6-5.1); RED CELL DISTRIBUTION WIDTH 13.2 % (11.7-14.4)
[2022-05-12 06:41] LABS: CALCIUM 9.6 mg/dL (8.4-10.2); CREATININE, SERUM 0.8 mg/dL (0.57-1.11)
[2022-05-12] MEDS: SALIVA SUBSTITUTE 45 ML LIQD MM SCH ×3 (07:43→17:03)
[2022-05-12] MEDS ORDERED: POTASSIUM CHLORIDE 20MEQ/100ML 200 ML IV ONE (08:00)
[2022-05-12] MEDS: Vancomycin IV 1 GM in SODIUM CHLORIDE 0.9% 250ML 250 ML IV SCH (08:24)
[2022-05-12] MEDS: SIMVASTATIN 40 MG TAB PO SCH (08:25)
[2022-05-12] MEDS: ACETAZOLAMIDE 250 MG TAB PO SCH ×2 (08:25→17:03)
[2022-05-12] MEDS: SENNOSIDES 8.6 MG TAB PO SCH (08:25)
[2022-05-12] MEDS: DOCUSATE SODIUM 100 MG CAP PO SCH (08:25)
[2022-05-12] MEDS: RIVAROXABAN 20 MG TABLET PO SCH (08:25)
[2022-05-12] MEDS: HYDROCHLOROTHIAZIDE 25 MG TAB PO SCH (08:26)
[2022-05-12] MEDS: FUROSEMIDE INJ 10 MG/ML 4 ML VIAL IV SCH (08:27)
[2022-05-12] MEDS: POTASSIUM CHLORIDE 20 MEQ TAB CR PO SCH (08:27)
[2022-05-12] MEDS: AZITHROMYCIN ORAL SUSP 200 MG/5 ML PO SCH (08:28)
[2022-05-12] MEDS ORDERED: POTASSIUM CHLORIDE 20MEQ/100ML 100 ML IV STA (09:33)
[2022-05-12] MEDS ORDERED: POTASSIUM CHLORIDE 10MEQ EA PO ONE (09:45)
[2022-05-12] MEDS: POTASSIUM CHLORIDE 20MEQ/100ML 100 ML IV SCH ×2 (18:57→18:58)
[2022-05-12] MEDS: ACETYLCYSTEINE 20% INHAL SOLN 30 ML VIAL INH SCH (19:08)
[2022-05-12] MEDS: ALBUTEROL/IPRATROPIUM 3 ML NEB NEB SCH (19:08)
[2022-05-13] VITALS (13 sets, daily range): BP systolic 95–126; BP diastolic 56–80
[2022-05-13] MEDS: TAZOBACTAM IV SCH ×2 (01:45→06:29)
[2022-05-13] MEDS: DEXTROSE 5% IV SCH ×2 (01:45→06:29)
[2022-05-13] MEDS: PIPERACILLIN IV SCH ×2 (01:45→06:29)
[2022-05-13] MEDS: LEVOTHYROXINE SODIUM 100 MCG TAB PO SCH (06:28)
[2022-05-13 06:32] LABS: BASOPHILS # (AUTO) 0.1 (0.0-0.1); BASOPHILS % 0.7 % (0.0-1.0); EOSINOPHILS # (AUTO) 0.2 (0.0-0.4); HEMATOCRIT 44.5 % (34.2-44.1); HEMOGLOBIN 14.7 g/dL (12.0-16.0); LYMPHOCYTES # (AUTO) 1.6 (1.0-3.2); LYMPHOCYTES % 18.1 % (18.0-39.1); MEAN CORPUSCULAR VOLUME 93.9 fL (81-99); MONOCYTES # (AUTO) 0.9 (0.2-0.8); MONOCYTES % 9.4 % (4.4-11.3); NEUTROPHILS # (AUTO) 6.1 (2.1-6.9); NEUTROPHILS % 67.5 % (38.7-80.0); PLATELET COUNT 233 x10e3/uL (140-360); RED BLOOD COUNT 4.74 x10e6/uL (3.6-5.1); RED CELL DISTRIBUTION WIDTH 13.2 % (11.7-14.4)
[2022-05-13 07:00] LABS: ALBUMIN 2.8 g/dL (3.5-5.0); ALBUMIN/GLOBULIN RATIO 0.7 (0.8-2.0); ANION GAP 18.1 mmol/L (8-16); CALCIUM 9.7 mg/dL (8.4-10.2); CREATININE, SERUM 0.82 mg/dL (0.57-1.11); POTASSIUM 3.1 mmol/L (3.5-5.1)
[2022-05-13] MEDS: SALIVA SUBSTITUTE 45 ML LIQD MM SCH ×3 (08:25→16:31)
[2022-05-13] MEDS: FUROSEMIDE INJ 10 MG/ML 4 ML VIAL IV SCH (08:25)
[2022-05-13] MEDS: SIMVASTATIN 40 MG TAB PO SCH (08:26)
[2022-05-13] MEDS: DOCUSATE SODIUM 100 MG CAP PO SCH (08:26)
[2022-05-13] MEDS: RIVAROXABAN 20 MG TABLET PO SCH (08:26)
[2022-05-13] MEDS: HYDROCHLOROTHIAZIDE 25 MG TAB PO SCH (08:26)
[2022-05-13] MEDS: ACETAZOLAMIDE 250 MG TAB PO SCH ×2 (08:27→16:31)
[2022-05-13] MEDS: SENNOSIDES 8.6 MG TAB PO SCH (08:27)
[2022-05-13] MEDS: Vancomycin IV 1 GM in SODIUM CHLORIDE 0.9% 250ML 250 ML IV SCH ×4 (08:28→23:22)
[2022-05-13] MEDS: AZITHROMYCIN ORAL SUSP 200 MG/5 ML PO SCH (08:28)
[2022-05-13] MEDS: POTASSIUM CHLORIDE 20 MEQ TAB CR PO SCH ×2 (08:28→12:44)
[2022-05-13] MEDS: ONDANSETRON HCL INJ 2MG/ML 2ML 2 MG/ML VIAL IV PRN (09:05)
[2022-05-13] MEDS ORDERED: POTASSIUM CHLORIDE 10MEQ EA PO NR (11:30)
[2022-05-14] VITALS (23 sets, daily range): BP systolic 85–128; BP diastolic 50–101
[2022-05-14] MEDS: LEVOTHYROXINE SODIUM 100 MCG TAB PO SCH (05:10)
[2022-05-14 06:47] LABS: BASOPHILS # (AUTO) 0.1 (0.0-0.1); BASOPHILS % 0.6 % (0.0-1.0); EOSINOPHILS # (AUTO) 0.2 (0.0-0.4); EOSINOPHILS % 1.5 % (0.0-6.0); HEMATOCRIT 44.5 % (34.2-44.1); HEMOGLOBIN 13.9 g/dL (12.0-16.0); LYMPHOCYTES # (AUTO) 1.5 (1.0-3.2); LYMPHOCYTES % 15.3 % (18.0-39.1); MEAN CORPUSCULAR HEMOGLOBIN 31.1 pg (28-32); MEAN CORPUSCULAR HGB CONC 31.2 g/dL (31-35); MEAN CORPUSCULAR VOLUME 99.6 fL (81-99); MONOCYTES % 9.9 % (4.4-11.3); NEUTROPHILS % 71.4 % (38.7-80.0); RED BLOOD COUNT 4.47 x10e6/uL (3.6-5.1)
[2022-05-14 06:50] LABS: PLATELET COUNT 152 x10e3/uL (140-360)
[2022-05-14] MEDS: DOCUSATE SODIUM 100 MG CAP PO SCH (08:52)
[2022-05-14] MEDS: ACETAZOLAMIDE 250 MG TAB PO SCH (08:52)
[2022-05-14] MEDS: SENNOSIDES 8.6 MG TAB PO SCH (08:53)
[2022-05-14] MEDS: RIVAROXABAN 20 MG TABLET PO SCH (08:53)
[2022-05-14] MEDS: SIMVASTATIN 40 MG TAB PO SCH (08:55)
[2022-05-14] MEDS: SALIVA SUBSTITUTE 45 ML LIQD MM SCH (08:58)
[2022-05-14] MEDS ORDERED: SODIUM CHLORIDE 0.9% 250ML 250 ML ONE (09:01)
[2022-05-14 09:03] LABS: ALBUMIN 2.8 g/dL (3.5-5.0); ALBUMIN/GLOBULIN RATIO 0.6 (0.8-2.0); CALCIUM 9.3 mg/dL (8.4-10.2); CREATININE, SERUM 0.76 mg/dL (0.57-1.11)
[2022-05-14] MEDS: POTASSIUM CHLORIDE 20 MEQ TAB CR PO SCH (10:21)
[2022-05-14] MEDS: FUROSEMIDE INJ 10 MG/ML 4 ML VIAL IV SCH (10:22)
[2022-05-14 10:44] LABS: PLATELET ESTIMATE ADEQUATE; PLATELET MORPHOLOGY COMMENT RARE EDTA CLUMPING
[2022-05-14] MEDS: ALBUTEROL/IPRATROPIUM 3 ML NEB NEB SCH ×2 (13:00→19:08)
[2022-05-14] MEDS: ACETYLCYSTEINE 20% INHAL SOLN 30 ML VIAL INH SCH ×2 (13:00→19:08)
[2022-05-14] MEDS: Vancomycin IV 1 GM in SODIUM CHLORIDE 0.9% 250ML 250 ML IV SCH ×2 (14:21→23:47)
[2022-05-14] MEDS: ALTEPLASE RECOMBINANT 2 MG/2 ML VIAL IV PRN (23:03)
[2022-05-15] VITALS (24 sets, daily range): BP systolic 80–125; BP diastolic 50–79
[2022-05-15] MEDS ORDERED: ACETYLCYSTEINE 200 MG/ML 4ML VIAL ONE (00:11)
[2022-05-15] MEDS: ACETYLCYSTEINE 20% INHAL SOLN 30 ML VIAL INH SCH ×4 (00:19→19:02)
[2022-05-15] MEDS: ALBUTEROL/IPRATROPIUM 3 ML NEB NEB SCH ×4 (00:19→19:02)
[2022-05-15] MEDS: ALTEPLASE RECOMBINANT 2 MG/2 ML VIAL IV PRN (02:33)
[2022-05-15 05:35] LABS: BASOPHILS # (AUTO) 0.1 (0.0-0.1); BASOPHILS % 0.7 % (0.0-1.0); EOSINOPHILS # (AUTO) 0.2 (0.0-0.4); EOSINOPHILS % 2.5 % (0.0-6.0); HEMATOCRIT 42.6 % (34.2-44.1); HEMOGLOBIN 13.4 g/dL (12.0-16.0); LYMPHOCYTES # (AUTO) 1.7 (1.0-3.2); LYMPHOCYTES % 19.1 % (18.0-39.1); MEAN CORPUSCULAR HEMOGLOBIN 31.2 pg (28-32); MEAN CORPUSCULAR HGB CONC 31.5 g/dL (31-35); MEAN CORPUSCULAR VOLUME 99.3 fL (81-99); MONOCYTES % 11.1 % (4.4-11.3); NEUTROPHILS # (AUTO) 5.8 (2.1-6.9); NEUTROPHILS % 65.8 % (38.7-80.0); PLATELET COUNT 228 x10e3/uL (140-360); RED BLOOD COUNT 4.29 x10e6/uL (3.6-5.1); RED CELL DISTRIBUTION WIDTH 13.1 % (11.7-14.4)
[2022-05-15] MEDS: LEVOTHYROXINE SODIUM 100 MCG TAB PO SCH (05:43)
[2022-05-15 06:09] LABS: ALBUMIN 2.7 g/dL (3.5-5.0); ALBUMIN/GLOBULIN RATIO 0.6 (0.8-2.0); CALCIUM 9.3 mg/dL (8.4-10.2); CREATININE, SERUM 0.74 mg/dL (0.57-1.11)
[2022-05-15] MEDS: SALIVA SUBSTITUTE 45 ML LIQD MM SCH ×3 (07:30→17:01)
[2022-05-15] MEDS: ACETAZOLAMIDE 250 MG TAB PO SCH ×2 (09:00→09:28)
[2022-05-15] MEDS: AZITHROMYCIN ORAL SUSP 200 MG/5 ML PO SCH ×2 (09:00→09:32)
[2022-05-15] MEDS: POTASSIUM CHLORIDE 20 MEQ TAB CR PO SCH (09:29)
[2022-05-15] MEDS: SENNOSIDES 8.6 MG TAB PO SCH (09:29)
[2022-05-15] MEDS: SIMVASTATIN 40 MG TAB PO SCH (09:29)
[2022-05-15] MEDS: FUROSEMIDE INJ 10 MG/ML 4 ML VIAL IV SCH (09:29)
[2022-05-15] MEDS: RIVAROXABAN 20 MG TABLET PO SCH (09:29)
[2022-05-15] MEDS: DOCUSATE SODIUM 100 MG CAP PO SCH (09:31)
[2022-05-15] MEDS ORDERED: METHYLPREDNISOLONE SOD SUCC 40 MG/ML VIAL 1ML IV SCH (10:15)
[2022-05-15] MEDS: Vancomycin IV 1 GM in SODIUM CHLORIDE 0.9% 250ML 250 ML IV SCH ×2 (11:16→23:45)
[2022-05-15] MEDS ORDERED: POTASSIUM CHLORIDE 20 MEQ TAB CR PO ONE (12:00)
[2022-05-16] VITALS (19 sets, daily range): BP systolic 78–132; BP diastolic 34–77
[2022-05-16] MEDS: ACETYLCYSTEINE 20% INHAL SOLN 30 ML VIAL INH SCH ×4 (01:00→18:54)
[2022-05-16] MEDS: ALBUTEROL/IPRATROPIUM 3 ML NEB NEB SCH ×4 (01:50→18:54)
[2022-05-16] MEDS: LEVOTHYROXINE SODIUM 100 MCG TAB PO SCH (06:35)
[2022-05-16 07:19] LABS: ANION GAP 12.7 mmol/L (8-16); CREATININE, SERUM 0.79 mg/dL (0.57-1.11); MAGNESIUM 2.3 MG/DL (1.3-2.1); POTASSIUM 3.7 mmol/L (3.5-5.1)
[2022-05-16] MEDS: FUROSEMIDE INJ 10 MG/ML 4 ML VIAL IV SCH (08:43)
[2022-05-16] MEDS: DOCUSATE SODIUM 100 MG CAP PO SCH (08:45)
[2022-05-16] MEDS: RIVAROXABAN 20 MG TABLET PO SCH (08:45)
[2022-05-16] MEDS: POTASSIUM CHLORIDE 20 MEQ TAB CR PO SCH (08:45)
[2022-05-16] MEDS: SENNOSIDES 8.6 MG TAB PO SCH (08:45)
[2022-05-16] MEDS: SIMVASTATIN 40 MG TAB PO SCH (08:46)
[2022-05-16] MEDS: SALIVA SUBSTITUTE 45 ML LIQD MM SCH ×3 (11:30→16:05)
[2022-05-16] MEDS: Vancomycin IV 1 GM in SODIUM CHLORIDE 0.9% 250ML 250 ML IV SCH ×2 (11:45→19:27)
[2022-05-16] MEDS ORDERED: METHYLPREDNISOLONE SOD SUCC 40 MG/ML VIAL 1ML IV ONE (14:00)
[2022-05-16] MEDS: AZITHROMYCIN ORAL SUSP 200 MG/5 ML PO SCH (15:00)
[2022-05-17] VITALS (7 sets, daily range): BP systolic 89–142; BP diastolic 57–79
[2022-05-17] MEDS: ALBUTEROL/IPRATROPIUM 3 ML NEB NEB SCH ×4 (00:05→19:00)
[2022-05-17] MEDS: ACETYLCYSTEINE 20% INHAL SOLN 30 ML VIAL INH SCH ×3 (06:23→19:00)
[2022-05-17] MEDS: LEVOTHYROXINE SODIUM 100 MCG TAB PO SCH (06:31)
[2022-05-17] MEDS ORDERED: METHYLPREDNISOLONE SOD SUCC 40 MG/ML VIAL 1ML IV SCH (07:30)
[2022-05-17 08:06] LABS: ANION GAP 16.5 mmol/L (8-16); CALCIUM 9.6 mg/dL (8.4-10.2); CREATININE, SERUM 0.85 mg/dL (0.57-1.11); POTASSIUM 3.5 mmol/L (3.5-5.1)
[2022-05-17] MEDS: SALIVA SUBSTITUTE 45 ML LIQD MM SCH ×3 (08:09→15:46)
[2022-05-17] MEDS: FUROSEMIDE INJ 10 MG/ML 4 ML VIAL IV SCH (10:11)
[2022-05-17] MEDS: SENNOSIDES 8.6 MG TAB PO SCH (10:12)
[2022-05-17] MEDS: SIMVASTATIN 40 MG TAB PO SCH (10:12)
[2022-05-17] MEDS: DOCUSATE SODIUM 100 MG CAP PO SCH (10:12)
[2022-05-17] MEDS: RIVAROXABAN 20 MG TABLET PO SCH (10:12)
[2022-05-17] MEDS: POTASSIUM CHLORIDE 20 MEQ TAB CR PO SCH (10:13)
[2022-05-17] MEDS ORDERED: ONDANSETRON HCL 4 MG ORAL DISINTEGRATING TAB PO PRN (10:45)
[2022-05-17] MEDS: Vancomycin IV 1 GM in SODIUM CHLORIDE 0.9% 250ML 250 ML IV SCH ×2 (11:54→22:18)
[2022-05-17] MEDS ORDERED: MELATONIN 5 MG TABLET PO ONE (23:30)
[2022-05-18 00:07] VITALS: BP 111/57
[2022-05-18 00:09] VITALS: BP 130/64
[2022-05-18] MEDS: ACETYLCYSTEINE 20% INHAL SOLN 30 ML VIAL INH SCH (01:00)
[2022-05-18] MEDS: ALBUTEROL/IPRATROPIUM 3 ML NEB NEB SCH ×5 (01:05→23:45)
[2022-05-18 04:00] VITALS: BP 129/72
[2022-05-18 04:55] LABS: ANION GAP 17.7 mmol/L (8-16); CALCIUM 9.9 mg/dL (8.4-10.2); POTASSIUM 3.7 mmol/L (3.5-5.1)
[2022-05-18] MEDS: LEVOTHYROXINE SODIUM 100 MCG TAB PO SCH (06:34)
[2022-05-18 07:00] VITALS: BP 125/71
[2022-05-18] MEDS: ACETYLCYSTEINE 200 MG/ML 4ML VIAL INH SCH ×4 (07:08→23:45)
[2022-05-18] MEDS: SALIVA SUBSTITUTE 45 ML LIQD MM SCH ×3 (07:33→15:37)
[2022-05-18] MEDS: DOCUSATE SODIUM 100 MG CAP PO SCH (08:50)
[2022-05-18] MEDS: SIMVASTATIN 40 MG TAB PO SCH (08:51)
[2022-05-18] MEDS: FUROSEMIDE 40 MG TAB PO SCH (08:51)
[2022-05-18] MEDS: METHYLPREDNISOLONE 4 MG TAB PO SCH (08:51)
[2022-05-18] MEDS: POTASSIUM CHLORIDE 20 MEQ TAB CR PO SCH (08:51)
[2022-05-18] MEDS: SENNOSIDES 8.6 MG TAB PO SCH (08:52)
[2022-05-18] MEDS: RIVAROXABAN 20 MG TABLET PO SCH (08:52)
[2022-05-18] MEDS: Vancomycin IV 1 GM in SODIUM CHLORIDE 0.9% 250ML 250 ML IV SCH (11:45)
[2022-05-18 15:01] VITALS: BP 101/64
[2022-05-18 20:00] VITALS: BP 129/69
[2022-05-18] MEDS ORDERED: MELATONIN 5 MG TABLET PO SCH (21:00)
[2022-05-18] MEDS ORDERED: ACETAMINOPHEN 325 MG TAB PO PRN (21:15)
[2022-05-19] VITALS: BP 114/59
[2022-05-19] MEDS: Vancomycin IV 1 GM in SODIUM CHLORIDE 0.9% 250ML 250 ML IV SCH ×2 (00:40→11:45)
[2022-05-19 04:00] VITALS: BP 126/58
[2022-05-19] MEDS: LEVOTHYROXINE SODIUM 100 MCG TAB PO SCH (06:04)
[2022-05-19] MEDS: ALBUTEROL/IPRATROPIUM 3 ML NEB NEB SCH (07:00)
[2022-05-19] MEDS: ACETYLCYSTEINE 200 MG/ML 4ML VIAL INH SCH (07:00)
[2022-05-19] MEDS: SALIVA SUBSTITUTE 45 ML LIQD MM SCH ×2 (07:30→11:30)
[2022-05-19 08:20] VITALS: BP 118/61
[2022-05-19 08:29] VITALS: BP 118/61
[2022-05-19] MEDS: METHYLPREDNISOLONE 4 MG TAB PO SCH (09:40)
[2022-05-19] MEDS: DOCUSATE SODIUM 100 MG CAP PO SCH (09:41)
[2022-05-19] MEDS: POTASSIUM CHLORIDE 20 MEQ TAB CR PO SCH (09:41)
[2022-05-19] MEDS: RIVAROXABAN 20 MG TABLET PO SCH (09:42)
[2022-05-19] MEDS: SIMVASTATIN 40 MG TAB PO SCH (09:42)
[2022-05-19] MEDS: FUROSEMIDE 40 MG TAB PO SCH (09:42)
[2022-05-19] MEDS: SENNOSIDES 8.6 MG TAB PO SCH (09:43)
[2022-05-19] MEDS ORDERED: KEFLEX PO (11:21)
[2022-05-19] MEDS ORDERED: DOXYCYCLINE PO (11:22)
[2022-05-19 13:03] VITALS: BP 104/60
== END 2022-05-19 14:27 | DRG 871 ==
LOC: ER 12:08 → ERHOLD 17:45 → ICU 23:59 → MED/SURG 05-16 20:21
PROC: 02HV33Z Insertion of Infusion Device into Superior Vena Cava, Percutaneous Approach (ICD-10-PCS; principal; 2022-05-05)
PROC: 3E04329 Introduction of Other Anti-infective into Central Vein, Percutaneous Approach (ICD-10-PCS; 2022-05-05)
PROC: 5A0935A Assistance with Respiratory Ventilation, Less than 24 Consecutive Hours, High Flow/Velocity Cannula (ICD-10-PCS; 2022-05-05)
DX: A41.9 Sepsis, unspecified organism (principal); I50.23 Acute on chronic systolic (congestive) heart failure; J96.01 Acute respiratory failure with hypoxia; J15.6 Pneumonia due to other Gram-negative bacteria; E87.1 Hypo-osmolality and hyponatremia; E87.0 Hyperosmolality and hypernatremia; E87.3 Alkalosis; J44.0 Chronic obstructive pulmonary disease with (acute) lower respiratory infection; E44.0 Moderate protein-calorie malnutrition; J44.1 Chronic obstructive pulmonary disease with (acute) exacerbation; I11.0 Hypertensive heart disease with heart failure; E03.9 Hypothyroidism, unspecified; E78.5 Hyperlipidemia, unspecified; H10.89 Other conjunctivitis; G47.00 Insomnia, unspecified; Z86.718 Personal history of other venous thrombosis and embolism; Z90.49 Acquired absence of other specified parts of digestive tract; Z90.11 Acquired absence of right breast and nipple; Z85.3 Personal history of malignant neoplasm of breast; Z88.2 Allergy status to sulfonamides; Z88.8 Allergy status to other drugs, medicaments and biological substances; Z91.041 Radiographic dye allergy status; Z88.5 Allergy status to narcotic agent; Z91.014 Allergy to mammalian meats; Z95.810 Presence of automatic (implantable) cardiac defibrillator; Z20.822 Contact with and (suspected) exposure to COVID-19; E66.9 Obesity, unspecified; Z68.37 Body mass index [BMI] 37.0-37.9, adult; R34 Anuria and oliguria; E87.6 Hypokalemia; Z87.891 Personal history of nicotine dependence; I25.10 Atherosclerotic heart disease of native coronary artery without angina pectoris
CPT/HCPCS: 36415; 36569; 71045; 71046; 71250; 71260; 74230; 76604; 76705; 80048; 80053; 80202; 81001; 82550; 82553; 83036; 83518; 83605; 83735; 83880; 84100; 84132; 84443; 84484; 85007; 85025; 85027; 85379; 85610; 85730; 87040; 87070; 87400; 87449; 93005; 93306; 94640; 94660; 94760; 94799; 99251; 99285; J0456; J0692; J1200; J1644; J1720; J1940; J2405; J2543; J2920; J2997; J3370; J3480; J7050; J7509; Q9967